=== PATIENT | female | born 1950 | race Caucasian/White ===

== ENCOUNTER 2017-02-03 09:15 | Inpatient (IN) | payer MEDICARE, BC, OTHER ==
[~2017-02-03 09:15] MED LIST: Bisacodyl 5 MG Tab PO PRN; Cyclobenzaprine 10 MG Tab PO PRN; Lactated Ringers 1,000 ML IV SCH; Lidocaine 1%/Sod Bicarbonate in NS 8.4% 1 ML Syringe IV PRN; Magnesium Hydroxide 400 MG/5 ML Susp 30 ML Cup PO PRN; Morphine 2 MG/ML Syringe IVPUSH PRN; Naloxone 0.4 MG/ML SDV IVPUSH PRN; Sennosides 8.6 MG Tab PO PRN; Sodium Chloride 0.9% 10 ML Syringe FLUSH PRN; diphenhydrAMINE 50 MG/ML SDV IVPUSH PRN
[2017-02-03] MEDS ORDERED: Lidocaine 1% 4 ML ONE (11:22)
[2017-02-03] MEDS ORDERED: ePHEDrine 50 MG/ML SDV ONE (11:22)
[2017-02-03] MEDS ORDERED: Propofol 200 MG/20 ML SDV ONE ×2 (11:23→14:09)
[2017-02-03] MEDS ORDERED: fentaNYL 100 MCG/2 ML SDV ONE (11:23)
[2017-02-03] MEDS ORDERED: Morphine PF 10 MG/10 ML SDV ONE (11:23)
[2017-02-03] MEDS ORDERED: Midazolam 1 MG/ML 2 ML SDV ONE ×2 (11:23→13:00)
--- NOTE | 2017-02-03 11:52 | PCM.PREANE ---
Preanesthetic Assessment - Anesthesia/Transfusion/Family Hx Anesthesia History: Prior Anesthesia Without Reaction Type of Anesthesia Reaction: Excessive Nausea/Vomiting Family History of Anesthesia Reaction: No Transfusion History: Prior Transfusion Without Reaction - Review of Systems General: No Symptoms Pulmonary: No Symptoms, Other (feels stuffy today) Cardiovascular: No Symptoms Gastrointestinal: No Symptoms Neurological: No Symptoms Other: Reports: Easy Bruising, Sinus Problem - Physical Assessment NPO Status Date: 02/03/17 NPO Status Time: 04:00 O2 Sat by Pulse Oximetry: 95 Respiratory Rate: 20 Vital Signs: Last Vital Signs Temp 98.3 F 02/03/17 10:50 Pulse 97 02/03/17 10:50 Resp 20 02/03/17 10:50 BP 149/94 H 02/03/17 10:50 Pulse Ox 95 02/03/17 10:50 Height: 5 ft 1 in Weight: 102.104 kg ASA Class: 2 Mental Status: Alert & Oriented x3 Airway Class: Mallampati = 2 Dentition: Reports: Normal Dentition Thyro-Mental Finger Breadths: 3 Mouth Opening Finger Breadths: 3 ROM/Head Extension: Full Lungs: Clear to Auscultation, Normal Respiratory Effort Cardiovascular: Regular Rate, Regular Rhythm - Lab Values: Laboratory Last Values MRSA (PCR) Negative 01/21/17 10:42 - Imaging/EKG Impressions: 01/15/17 cxr possibly atelectasis or infiltrate right base - mild increase in heart size 01/15/17 EKG SR 65 - Allergies Allergies/Adverse Reactions: Allergies Allergy/AdvReac Type Severity Reaction Status Date / Time amlodipine [From [facility]] Allergy Itching Verified 02/03/17 11:34 amoxicillin Allergy Stomach Verified 02/03/17 11:34 Upset bee venom protein (honey bee) Allergy Edema Verified 02/03/17 11:34 erythromycin base Allergy Stomach Verified 02/03/17 11:34 Upset - Blood Blood Available: No - Acknowledgements Anesthesia Type Planned: Spinal Pt an Appropriate Candidate for the Planned Anesthesia: Yes Alternatives and Risks of Anesthesia Discussed w Pt/Guardian: Yes Pt/Guardian Understands and Agrees with Anesthesia Plan: Yes PreAnesthesia Questionnaire HEENT History: Reports: Impaired Vision, Other (See Below) Other HEENT History: wears glasses Cardiovascular History: Reports: Heart Murmur, High Cholesterol, Hypertension, Other (See Below) Other Cardiovascular History: mitral valve regurgitation Respiratory History: Reports: Sleep Apnea Gastrointestinal History: Reports: GERD Genitourinary History: Reports: Other (See Below) Other Genitourinary History: breast hypertrophy, UTI, frequency TILE [employer]TER History: Reports: None Musculoskeletal History: Reports: Osteoarthritis, Osteoporosis, Other (See Below ) Other Musculoskeletal History: degenerative joint disease, degenerative disc disease, bilateral shoulder pain, upper back pain Endocrine/Metabolic History: Reports: None, Obesity/BMI 30+ Hematologic History: Reports: None Immunologic History: Reports: None Oncologic (Cancer) History: Reports: None Dermatologic History: Reports: None - Past Surgical History GI Surgical History: Reports: Cholecystectomy, Colonoscopy, EGD Female Surgical History: Reports: Breast Biopsy Endocrine Surgical History: Reports: None Neurological Surgical History: Reports: None Musculoskeletal Surgical History: Reports: Other (See Below) Other Musculoskeletal Surgeries/Procedures:: right total knee, right foot fusion with hardware Oncologic Surgical History: Reports: None - SUBSTANCE USE Smoking Status *Q: Never Smoker Tobacco Use Within Last Twelve Months: No Second Hand Smoke Exposure: No Days Per Week of Alcohol Use: 0 (1-2 per month) Recreational Drug Use History: No - HOME MEDS Home Medications: Home Meds Aspirin/Acetaminophen/Caffeine [Migraine Relief Caplet] 2 tab PO Q6H PRN [History] Calcium Carbonate [Calcium] 1,200 mg PO DAILY 01/31/17 [History] Celecoxib 200 mg PO DAILY PRN 01/31/17 [History] Hydrochlorothiazide [Hydrochlorothiazide] 12.5 mg PO DAILY 01/31/17 [History] Multivitamin [Daily Olvier] 1 tab PO DAILY 01/31/17 [History] Naproxen Sodium [Aleve] 220 mg PO BID 01/31/17 [History] Omeprazole Magnesium [Prilosec Otc] 20 mg PO DAILY 01/31/17 [History] Simvastatin [Zocor] 20 mg PO BEDTIME 01/31/17 [History] traMADol HCl [Tramadol HCl] 50 mg PO QID PRN 01/31/17 [History] Cholecalciferol (Vitamin D3) [Vitamin D] 1 tab PO DAILY 02/03/17 [History] Vit C/Oliver Ac/Lut/Copper/ZnOx [Preservision Lutein Softgel] 1 cap PO BID [History] - CURRENT (IN HOUSE) MEDS Current Meds: Current Medications Aspirin (Ecotrin) 325 mg PO BID [facility]ON[facility] Bisacodyl (Dulcolax) 5 mg PO DAILY PRN PRN Reason: Constipation Morphine Sulfate 8 mg/Epinephrine HCl 0.3 mg/Cefuroxime Sodium 750 mg/Ketorolac Tromethamine 30 mg/Sodium Chloride 27.9 ml 0 mg .XX ONETIME ONE Stop: 02/03/17 12:01 Cyclobenzaprine HCl (Flexeril) 10 mg PO TID PRN PRN Reason: Spasms Diphenhydramine HCl (Benadryl) 25 mg IVPUSH Q4H PRN PRN Reason: Nausea Docusate Sodium (Colace) 100 mg PO BID [facility] Famotidine (Pepcid) 20 mg PO Q12H [facility] Lactated Ringer's (Ringers, Lactated) 1,000 mls @ 125 mls/hr IV ASDIRECTED [facility] Last Admin: 02/03/17 11:10 Dose: 125 mls/hr Cefazolin Sodium/Dextrose 2 gm (/ Premix) 50 mls @ 100 mls/hr IV Q8H [facility] Stop: 02/03/17 23:59 Ketorolac Tromethamine (Toradol) 15 mg IVPUSH Q8H PRN PRN Reason: Pain Lidocaine/Sodium Bicarbonate (Buffered Lidocaine 1% In Ns 8.4%) 0.25 ml IV ONETIME PRN PRN Reason: Prior to IV Start Stop: 02/03/17 23:00 Last Admin: 02/03/17 11:09 Dose: 0.25 ml Magnesium Hydroxide (Milk Of Magnesia) 30 ml PO BID PRN PRN Reason: Constipation Morphine Sulfate (Morphine) 2 mg IVPUSH Q2H PRN PRN Reason: Breakthrough Pain Naloxone HCl (Narcan) 0.1 mg IVPUSH Q5M PRN PRN Reason: Oversedation Ondansetron HCl (Zofran) 4 mg IVPUSH Q6H PRN PRN Reason: Nausea/Vomiting Oxycodone/Acetaminophen (Percocet 325-5 Mg) 1 - 2 tab PO Q4H PRN PRN Reason: Pain Senna (Senna) 8.6 mg PO BID PRN PRN Reason: Constipation Sodium Chloride (Saline Flush) 10 ml FLUSH ASDIRECTED PRN PRN Reason: Keep Vein Open Stop: 02/03/17 23:00 Discontinued Medications Cefazolin Sodium (Ancef) Confirm Administered Dose 2 gm .ROUTE .STK-MED ONE Stop: 02/03/17 11:23 Ephedrine Sulfate (Ephedrine Sulfate) Confirm Administered Dose 50 mg .ROUTE .STK-MED ONE Stop: 02/03/17 11:23 Fentanyl (Sublimaze) Confirm Administered Dose 100 mcg .ROUTE .STK-MED ONE Stop: 02/03/17 11:24 Lidocaine HCl (Xylocaine-Mpf 1%) Confirm Administered Dose 4 mls @ as directed .ROUTE .STK-MED ONE Stop: 02/03/17 11:23 Midazolam HCl (Versed 1 Mg/Ml) Confirm Administered Dose 2 mg .ROUTE .STK-MED ONE Stop: 02/03/17 11:24 Morphine Sulfate (Duramorph Pf) Confirm Administered Dose 10 mg .ROUTE .STK-MED ONE Stop: 02/03/17 11:24 Propofol (Diprivan 20 Ml) Confirm Administered Dose 400 mg .ROUTE .STK-MED ONE Stop: 02/03/17 11:24
[2017-02-03] MEDS ORDERED: Famotidine 20 MG/2 ML SDV ONE (12:14)
[2017-02-03] MEDS ORDERED: ceFAZolin 1 GM Vial ONE (12:19)
[2017-02-03] MEDS ORDERED: Scopolamine 1.5 MG Transdermal Patch TRDERM ONE (12:30)
[2017-02-03] MEDS: ceFAZolin 1 GM Vial ONE ×2 (13:44→14:17)
[2017-02-03] MEDS: Bupivacaine 0.25% 30 ML SDV ONE ×2 (13:44→14:32)
[2017-02-03] MEDS: Iodine/Sodium Iodide 2% Tincture 30 ML Bottle ONE ×2 (13:45→14:13)
[2017-02-03] MEDS: Morphine 8 MG, EPINEPHrine 0.3 MG, Cefuroxime 750 MG, Ketorolac 30 MG, Sodium Chloride ... ONE ×15 (13:45→18:21)
[2017-02-03] MEDS: Vancomycin 1 GM SDV ONE ×2 (13:46→14:27)
[2017-02-03] MEDS ORDERED: diphenhydrAMINE 50 MG/ML SDV IVPUSH PRN (13:53)
[2017-02-03] MEDS ORDERED: Ondansetron 4 MG/2 ML SDV IVPUSH PRN (13:53)
[2017-02-03] MEDS ORDERED: Haloperidol Lactate 5 MG/ML SDV IVPUSH ONE (14:15)
--- NOTE | 2017-02-03 15:12 | PCM.POSTAN ---
POST ANESTHESIA ASSESSMENT - MENTAL STATUS Mental Status: Alert, Oriented - VITAL SIGNS Pulse Rate: 93 SaO2: 93 Resp Rate: 12 Blood Pressure: 121/71 Temperature: 98.2 C - RESPIRATORY Respiratory Status: Respiratory Rate WNL, Airway Patent, O2 Saturation Stable, Supplemental Oxygen - CARDIOVASCULAR CV Status: Pulse Rate WNL, Blood Pressure Stable - GASTROINTESTINAL GI Status: No Symptoms - PAIN Pain Score: 0 - POST OP HYDRATION Hydration Status: Adequate & Stable
--- NOTE | 2017-02-03 19:50 | PCM.CONSN ---
- General Info Date of Service: 02/03/17 Subjective Update: 66 year old female with left knee OA presents post op. She is S/P left total knee arthroplasty. The hospitalist service has been consulted to assist with medical management. Functional Status: Reports: Pain Controlled, Tolerating Diet, Ambulating - Review of Systems General: Reports: No Symptoms HEENT: Reports: No Symptoms Pulmonary: Reports: No Symptoms Cardiovascular: Reports: No Symptoms Gastrointestinal: Reports: No Symptoms Genitourinary: Reports: No Symptoms Musculoskeletal: Reports: No Symptoms Skin: Reports: No Symptoms Neurological: Reports: No Symptoms Psychiatric: Reports: No Symptoms - Patient Data Vitals - Most Recent: Last Vital Signs Temp 36.6 C 02/03/17 18:00 Pulse 88 02/03/17 19:05 Resp 16 02/03/17 19:05 BP 120/75 02/03/17 19:05 Pulse Ox 92 L 02/03/17 19:05 Weight - Most Recent: 102.104 kg I&O - Last 24 Hours: Intake & Output 02/03/17 02/03/17 02/03/17 06:59 14:59 22:59 Intake Total 340 Output Total 500 Balance -160 Med Orders - Current: Current Medications Aspirin (Ecotrin) 325 mg PO BID [facility]ONTE Bisacodyl (Dulcolax) 5 mg PO DAILY PRN PRN Reason: Constipation Calcium Carbonate/Glycine (Calcium Carbonate) 1,200 mg PO DAILY [facility] Cholecalciferol (Vitamin D3) 5,000 units PO DAILY [facility] Cyclobenzaprine HCl (Flexeril) 10 mg PO TID PRN PRN Reason: Spasms Docusate Sodium (Colace) 100 mg PO BID [facility] Hydrochlorothiazide (Hydrochlorothiazide) 12.5 mg PO DAILY [facility] Cefazolin Sodium/Dextrose 2 gm (/ Premix) 50 mls @ 100 mls/hr IV Q8H [facility] Stop: 02/04/17 13:29 Ketorolac Tromethamine (Toradol) 15 mg IVPUSH Q8H PRN PRN Reason: Pain Magnesium Hydroxide (Milk Of Magnesia) 30 ml PO BID PRN PRN Reason: Constipation Miscellaneous Information (Remove Patch) 0 ea TRDERM ONETIME ONE Stop: 02/06/17 12:31 Morphine Sulfate (Morphine) 2 mg IVPUSH Q2H PRN PRN Reason: Breakthrough Pain Naloxone HCl (Narcan) 0.1 mg IVPUSH Q5M PRN PRN Reason: Oversedation Ondansetron HCl (Zofran) 4 mg IVPUSH Q6H PRN PRN Reason: Nausea/Vomiting Oxycodone/Acetaminophen (Percocet 325-5 Mg) 1 - 2 tab PO Q4H PRN PRN Reason: Pain Pantoprazole Sodium (Protonix) 40 mg PO DAILY [facility] Senna (Senna) 8.6 mg PO BID PRN PRN Reason: Constipation Simvastatin (Zocor) 20 mg PO BEDTIME [facility] Sodium Chloride (Saline Flush) 10 ml FLUSH ASDIRECTED PRN PRN Reason: Keep Vein Open Stop: 02/03/17 23:00 Discontinued Medications Bupivacaine HCl (Marcaine 0.25%) Confirm Administered Dose 30 ml .ROUTE .STK- MED ONE Stop: 02/03/17 12:20 Last Admin: 02/03/17 14:32 Dose: 30 ml Cefazolin Sodium (Ancef) Confirm Administered Dose 2 gm .ROUTE .STK-MED ONE Stop: 02/03/17 11:23 Last Admin: 02/03/17 14:17 Dose: 2 gm Cefazolin Sodium (Ancef) Confirm Administered Dose 2 gm .ROUTE .STK-MED ONE Stop: 02/03/17 12:20 Morphine Sulfate 8 mg/Epinephrine HCl 0.3 mg/Cefuroxime Sodium 750 mg/Ketorolac Tromethamine 30 mg/Sodium Chloride 27.9 ml 0 mg .XX ONETIME ONE Stop: 02/03/17 12:01 Last Admin: 02/03/17 18:21 Dose: Not Given Diphenhydramine HCl (Benadryl) 25 mg IVPUSH Q4H PRN PRN Reason: Nausea Diphenhydramine HCl (Benadryl) 25 mg IVPUSH Q6H PRN PRN Reason: Pruritis Stop: 02/03/17 18:00 Ephedrine Sulfate (Ephedrine Sulfate) Confirm Administered Dose 50 mg .ROUTE .STK-MED ONE Stop: 02/03/17 11:23 Famotidine (Pepcid) 20 mg PO Q12H [facility] Famotidine (Pepcid) Confirm Administered Dose 20 mg .ROUTE .STK-MED ONE Stop: 02/03/17 12:15 Fentanyl (Sublimaze) Confirm Administered Dose 100 mcg .ROUTE .STK-MED ONE Stop: 02/03/17 11:24 Haloperidol Lactate (Haldol) 1 mg IVPUSH ONETIME ONE Stop: 02/03/17 14:16 Last Admin: 02/03/17 18:56 Dose: Not Given Lactated Ringer's (Ringers, Lactated) 1,000 mls @ 125 mls/hr IV ASDIRECTED [facility] Last Admin: 02/03/17 11:10 Dose: 125 mls/hr Lidocaine HCl (Xylocaine-Mpf 1%) Confirm Administered Dose 4 mls @ as directed .ROUTE .STK-MED ONE Stop: 02/03/17 11:23 Iodine (Iodine 2% Mild Tincture) Confirm Administered Dose 30 ml .ROUTE .STK- MED ONE Stop: 02/03/17 12:20 Last Admin: 02/03/17 14:13 Dose: 18 ml Lidocaine/Sodium Bicarbonate (Buffered Lidocaine 1% In Ns 8.4%) 0.25 ml IV ONETIME PRN PRN Reason: Prior to IV Start Stop: 02/03/17 23:00 Last Admin: 02/03/17 11:09 Dose: 0.25 ml Midazolam HCl (Versed 1 Mg/Ml) Confirm Administered Dose 2 mg .ROUTE .STK-MED ONE Stop: 02/03/17 11:24 Midazolam HCl (Versed 1 Mg/Ml) Confirm Administered Dose 2 mg .ROUTE .STK-MED ONE Stop: 02/03/17 13:01 Morphine Sulfate (Duramorph Pf) Confirm Administered Dose 10 mg .ROUTE .STK-MED ONE Stop: 02/03/17 11:24 Ondansetron HCl (Zofran) 4 mg IVPUSH ONETIME PRN PRN Reason: Nausea/Vomiting Stop: 02/03/17 18:00 Propofol (Diprivan 20 Ml) Confirm Administered Dose 400 mg .ROUTE .STK-MED ONE Stop: 02/03/17 11:24 Propofol (Diprivan 20 Ml) Confirm Administered Dose 400 mg .ROUTE .STK-MED ONE Stop: 02/03/17 14:10 Scopolamine (Transderm-Scop) 1.5 mg TRDERM ONETIME ONE Stop: 02/03/17 12:31 Last Admin: 02/03/17 12:30 Dose: 1.5 mg Tranexamic Acid (Cyklokapron) Confirm Administered Dose 1,000 mg .ROUTE .STK- MED ONE Stop: 02/03/17 12:20 Last Admin: 02/03/17 14:31 Dose: 1,000 mg Vancomycin HCl (Vancomycin) Confirm Administered Dose 1 gm .ROUTE .STK-MED ONE Stop: 02/03/17 12:20 Last Admin: 02/03/17 14:27 Dose: 1 gm - Exam Quality Assessment: Supplemental Oxygen, Urine Catheter, DVT Prophylaxis General: Alert, Oriented, Cooperative, No Acute Distress HEENT: Pupils Equal, Pupils Reactive, EOMI Neck: Supple, Trachea Midline, No JVD Lungs: Normal Respiratory Effort Cardiovascular: Regular Rate, Regular Rhythm, Murmurs (SM at apex) GI/Abdominal Exam: Normal Bowel Sounds, Soft, Non-Tender, No Distention (Female) Exam: Deferred Back Exam: Normal Inspection Extremities: Normal Inspection, Normal Capillary Refill Skin: Warm Wound/Incisions: Dressing Dry and Intact Neurological: No New Focal Deficit Psy/Mental Status: Alert, Normal Affect, Normal Mood Consult PN Assessment/Plan POD#: 0 Procedures: Procedures BONE IMAGING 3 PHASE (12/05/16) MICROBE SUSCEPTIBLE HENRY (10/26/16) URINE BACTERIA CULTURE (10/26/16) URINE CULTURE/COLONY COUNT (10/26/16) X-RAY EXAM OF WRIST (10/27/13) Problem List Initiated/Reviewed/Updated: Yes Plan: Impression: Left knee arthroplasty, POD 0 Chronic Depression OA HLD MR Sleep apnea Plan: Home meds Daily labs Pain/DVT medical mgt per primary service CM/PT/OT
[2017-02-03] MEDS: ceFAZolin 2 GM in Premix Bag 1 BAG IV SCH (20:05)
[2017-02-03] MEDS: Simvastatin 20 MG Tab PO SCH (20:05)
[2017-02-03] MEDS: Docusate Sodium 100 MG Cap PO SCH (20:05)
[2017-02-03] MEDS ORDERED: Famotidine 20 MG Tab PO SCH (21:00)
[2017-02-03] MEDS: Acetaminophen/oxyCODONE 325-5 MG Tab PO PRN (21:38)
[2017-02-03] MEDS ORDERED: diphenhydrAMINE 25 MG Cap PO ONE (22:30)
[2017-02-04] MEDS: Acetaminophen/oxyCODONE 325-5 MG Tab PO PRN ×5 (03:59→22:32)
[2017-02-04] MEDS: ceFAZolin 2 GM in Premix Bag 1 BAG IV SCH ×2 (04:00→12:08)
--- NOTE | 2017-02-04 08:06 | CR ---
Left knee: Two views of the left knee were obtained. Comparison: No prior left knee study. Knee prosthesis is seen. Components are aligned. Soft tissue air is noted from the surgical procedure. Bony structures are unremarkable. Impression: 1. Satisfactory postop radiographic appearance of recently placed left knee prosthesis. Diagnostic code #2
[2017-02-04] MEDS: Cholecalciferol (Vitamin D3) 1,000 Unit Tab PO SCH (08:21)
[2017-02-04] MEDS: Pantoprazole 40 MG Tab.CR PO SCH (08:22)
[2017-02-04] MEDS: Aspirin 325 MG Tab.EC PO SCH ×2 (08:22→21:58)
[2017-02-04] MEDS: Hydrochlorothiazide 12.5 MG Cap PO SCH (08:22)
[2017-02-04] MEDS: Calcium Carbonate 600 MG Tab PO SCH (08:22)
[2017-02-04] MEDS: Docusate Sodium 100 MG Cap PO SCH ×2 (08:23→21:58)
[2017-02-04] MEDS: Ketorolac 15 MG/ML SDV IVPUSH PRN ×2 (08:24→21:57)
--- NOTE | 2017-02-04 09:44 | PCM.CONSN ---
- General Info Date of Service: 02/04/17 Admission Dx/Problem (Free Text): S/P left knee arthroplasty Subjective Update: 66 year old female with left knee OA presents post op. She is day 1 S/P left total knee arthroplasty. The hospitalist service has been consulted to assist with medical management. Functional Status: Reports: Pain Controlled, Tolerating Diet, Ambulating, Incentive Spirometry Pain Score: 3 - Review of Systems General: Reports: No Symptoms HEENT: Reports: No Symptoms Pulmonary: Reports: Cough (since surgery ). Denies: Shortness of Breath, Pleuritic Chest Pain, Sputum, Wheezing Cardiovascular: Reports: No Symptoms Gastrointestinal: Reports: No Symptoms Genitourinary: Reports: No Symptoms Musculoskeletal: Reports: Leg Pain (left leg from knee to hip) Skin: Reports: No Symptoms Neurological: Reports: No Symptoms Psychiatric: Reports: No Symptoms - Patient Data Vitals - Most Recent: Last Vital Signs Temp 98.6 F 02/04/17 08:14 Pulse 71 02/04/17 08:14 Resp 17 02/04/17 09:00 BP 102/67 02/04/17 08:14 Pulse Ox 97 02/04/17 07:50 Weight - Most Recent: 224 lb I&O - Last 24 Hours: Intake & Output 02/03/17 02/04/17 02/04/17 22:59 06:59 14:59 Intake Total 1350 1300 Output Total 600 575 Balance 750 725 Lab Results Last 24 Hours: Laboratory Results - last 24 hr 02/04/17 02/04/17 Range/Units 06:01 06:01 WBC 12.33 H (3.98-10.04) K/mm3 RBC 3.43 L (3.98-5.22) M/mm3 Hgb 10.3 L (11.2-15.7) gm/L Hct 32.1 L (34.1-44.9) % MCV 93.6 (79.4-94.8) fl MCH 30.0 (25.6-32.2) pg MCHC 32.1 L (32.2-35.5) g/dl RDW Std Deviation 45.5 (36.4-46.3) fL Plt Count 211 (182-369) K/mm3 MPV 12.0 (9.4-12.3) fl Sodium 139 (136-145) mEq/L Potassium 4.1 (3.5-5.1) mEq/L Chloride 103 (98-107) mEq/L Carbon Dioxide 29 (21-32) mEq/L Anion Gap 11.1 (5-15) BUN 13 (7-18) mg/dL Creatinine 0.8 (0.55-1.02) mg/dL Est Cr Clr Drug Dosing 50.79 mL/min Estimated GFR (MDRD) > 60 (>60) mL/min BUN/Creatinine Ratio 16.3 (14-18) Glucose 118 H (80-115) mg/dL Calcium 8.0 L (8.5-10.1) mg/dL Total Bilirubin 0.9 (0.2-1.0) mg/dL AST 21 (15-37) U/L ALT 24 (14-59) U/L Alkaline Phosphatase 53 (46-116) U/L Total Protein 5.9 L (6.4-8.2) g/dl Albumin 2.8 L (3.4-5.0) g/dl Globulin 3.1 gm/dL Albumin/Globulin Ratio 0.9 L (1-2) Med Orders - Current: Current Medications Aspirin (Ecotrin) 325 mg PO BID [facility] Last Admin: 02/04/17 08:22 Dose: 325 mg Bisacodyl (Dulcolax) 5 mg PO DAILY PRN PRN Reason: Constipation Calcium Carbonate/Glycine (Calcium Carbonate) 1,200 mg PO DAILY [facility] Last Admin: 02/04/17 08:22 Dose: 600 mg Cholecalciferol (Vitamin D3) 5,000 units PO DAILY [facility] Last Admin: 02/04/17 08:21 Dose: 5,000 units Cyclobenzaprine HCl (Flexeril) 10 mg PO TID PRN PRN Reason: Spasms Docusate Sodium (Colace) 100 mg PO BID [facility] Last Admin: 02/04/17 08:23 Dose: 100 mg Hydrochlorothiazide (Hydrochlorothiazide) 12.5 mg PO DAILY [facility] Last Admin: 02/04/17 08:22 Dose: 12.5 mg Cefazolin Sodium/Dextrose 2 gm (/ Premix) 50 mls @ 100 mls/hr IV Q8H [facility] Stop: 02/04/17 13:29 Last Admin: 02/04/17 04:00 Dose: 100 mls/hr Ketorolac Tromethamine (Toradol) 15 mg IVPUSH Q8H PRN PRN Reason: Pain Last Admin: 02/04/17 08:24 Dose: 15 mg Magnesium Hydroxide (Milk Of Magnesia) 30 ml PO BID PRN PRN Reason: Constipation Miscellaneous Information (Remove Patch) 0 ea TRDERM ONETIME ONE Stop: 02/06/17 12:31 Morphine Sulfate (Morphine) 2 mg IVPUSH Q2H PRN PRN Reason: Breakthrough Pain Naloxone HCl (Narcan) 0.1 mg IVPUSH Q5M PRN PRN Reason: Oversedation Ondansetron HCl (Zofran) 4 mg IVPUSH Q6H PRN PRN Reason: Nausea/Vomiting Oxycodone/Acetaminophen (Percocet 325-5 Mg) 1 - 2 tab PO Q4H PRN PRN Reason: Pain Last Admin: 02/04/17 08:23 Dose: 2 tab Pantoprazole Sodium (Protonix) 40 mg PO DAILY [facility] Last Admin: 02/04/17 08:22 Dose: 40 mg Senna (Senna) 8.6 mg PO BID PRN PRN Reason: Constipation Simvastatin (Zocor) 20 mg PO BEDTIME [facility] Last Admin: 02/03/17 20:05 Dose: 20 mg Discontinued Medications Bupivacaine HCl (Marcaine 0.25%) Confirm Administered Dose 30 ml .ROUTE .STK- MED ONE Stop: 02/03/17 12:20 Last Admin: 02/03/17 14:32 Dose: 30 ml Cefazolin Sodium (Ancef) Confirm Administered Dose 2 gm .ROUTE .STK-MED ONE Stop: 02/03/17 11:23 Last Admin: 02/03/17 14:17 Dose: 2 gm Cefazolin Sodium (Ancef) Confirm Administered Dose 2 gm .ROUTE .STK-MED ONE Stop: 02/03/17 12:20 Morphine Sulfate 8 mg/Epinephrine HCl 0.3 mg/Cefuroxime Sodium 750 mg/Ketorolac Tromethamine 30 mg/Sodium Chloride 27.9 ml 0 mg .XX ONETIME ONE Stop: 02/03/17 12:01 Last Admin: 02/03/17 18:21 Dose: Not Given Diphenhydramine HCl (Benadryl) 25 mg IVPUSH Q4H PRN PRN Reason: Nausea Diphenhydramine HCl (Benadryl) 25 mg IVPUSH Q6H PRN PRN Reason: Pruritis Stop: 02/03/17 18:00 Diphenhydramine HCl (Benadryl) 25 mg PO ONETIME ONE Stop: 02/03/17 22:31 Last Admin: 02/03/17 22:39 Dose: 25 mg Ephedrine Sulfate (Ephedrine Sulfate) Confirm Administered Dose 50 mg .ROUTE .STK-MED ONE Stop: 02/03/17 11:23 Famotidine (Pepcid) 20 mg PO Q12H [facility] Famotidine (Pepcid) Confirm Administered Dose 20 mg .ROUTE .STK-MED ONE Stop: 02/03/17 12:15 Fentanyl (Sublimaze) Confirm Administered Dose 100 mcg .ROUTE .STK-MED ONE Stop: 02/03/17 11:24 Haloperidol Lactate (Haldol) 1 mg IVPUSH ONETIME ONE Stop: 02/03/17 14:16 Last Admin: 02/03/17 18:56 Dose: Not Given Lactated Ringer's (Ringers, Lactated) 1,000 mls @ 125 mls/hr IV ASDIRECTED [facility] Last Admin: 02/03/17 11:10 Dose: 125 mls/hr Lidocaine HCl (Xylocaine-Mpf 1%) Confirm Administered Dose 4 mls @ as directed .ROUTE .STK-MED ONE Stop: 02/03/17 11:23 Iodine (Iodine 2% Mild Tincture) Confirm Administered Dose 30 ml .ROUTE .STK- MED ONE Stop: 02/03/17 12:20 Last Admin: 02/03/17 14:13 Dose: 18 ml Lidocaine/Sodium Bicarbonate (Buffered Lidocaine 1% In Ns 8.4%) 0.25 ml IV ONETIME PRN PRN Reason: Prior to IV Start Stop: 02/03/17 23:00 Last Admin: 02/03/17 11:09 Dose: 0.25 ml Midazolam HCl (Versed 1 Mg/Ml) Confirm Administered Dose 2 mg .ROUTE .STK-MED ONE Stop: 02/03/17 11:24 Midazolam HCl (Versed 1 Mg/Ml) Confirm Administered Dose 2 mg .ROUTE .STK-MED ONE Stop: 02/03/17 13:01 Morphine Sulfate (Duramorph Pf) Confirm Administered Dose 10 mg .ROUTE .STK-MED ONE Stop: 02/03/17 11:24 Ondansetron HCl (Zofran) 4 mg IVPUSH ONETIME PRN PRN Reason: Nausea/Vomiting Stop: 02/03/17 18:00 Propofol (Diprivan 20 Ml) Confirm Administered Dose 400 mg .ROUTE .STK-MED ONE Stop: 02/03/17 11:24 Propofol (Diprivan 20 Ml) Confirm Administered Dose 400 mg .ROUTE .STK-MED ONE Stop: 02/03/17 14:10 Scopolamine (Transderm-Scop) 1.5 mg TRDERM ONETIME ONE Stop: 02/03/17 12:31 Last Admin: 02/03/17 12:30 Dose: 1.5 mg Sodium Chloride (Saline Flush) 10 ml FLUSH ASDIRECTED PRN PRN Reason: Keep Vein Open Stop: 02/03/17 23:00 Tranexamic Acid (Cyklokapron) Confirm Administered Dose 1,000 mg .ROUTE .STK- MED ONE Stop: 02/03/17 12:20 Last Admin: 02/03/17 14:31 Dose: 1,000 mg Vancomycin HCl (Vancomycin) Confirm Administered Dose 1 gm .ROUTE .STK-MED ONE Stop: 02/03/17 12:20 Last Admin: 02/03/17 14:27 Dose: 1 gm - Exam Quality Assessment: Supplemental Oxygen, DVT Prophylaxis General: Alert, Oriented, Cooperative HEENT: Pupils Equal, Pupils Reactive, Mucous Membr. Moist/[place] Neck: Supple, Trachea Midline, No JVD Lungs: Clear to Auscultation, Normal Respiratory Effort, Other Cardiovascular: Regular Rate, Regular Rhythm, Murmurs (systolic at apex ) GI/Abdominal Exam: Normal Bowel Sounds, Soft, Non-Tender, No Distention, No Mass (Female) Exam: Deferred Back Exam: Normal Inspection Extremities: Other (left leg is wrapped from surgery. Right leg is unremarkable ) Peripheral Pulses: 2+: Radial (L), Radial (R), Posterior Tibial (R), Dorsalis Pedis (L), Dorsalis Pedis (R) Skin: Warm, Dry, Intact Wound/Incisions: Dressing Dry and Intact, No Drainage Neurological: No New Focal Deficit Psy/Mental Status: Alert, Normal Affect, Normal Mood Consult PN Assessment/Plan POD#: 1 Procedures: Procedures BONE IMAGING 3 PHASE (12/05/16) MICROBE SUSCEPTIBLE HENRY (10/26/16) URINE BACTERIA CULTURE (10/26/16) URINE CULTURE/COLONY COUNT (10/26/16) X-RAY EXAM OF WRIST (10/27/13) (1) Status post left knee replacement SNOMED Code(s): 5878127897073, 0034312942812 Code(s): Z96.652 - PRESENCE OF LEFT ARTIFICIAL KNEE JOINT Priority: High Current Visit: Yes (2) HLD (hyperlipidemia) SNOMED Code(s): 65208375 Code(s): E78.5 - HYPERLIPIDEMIA, UNSPECIFIED Priority: Low Current Visit : No Qualifiers: Hyperlipidemia type: unspecified Qualified Code(s): E78.5 - Hyperlipidemia , unspecified (3) Mitral regurgitation SNOMED Code(s): 40935759 Code(s): I34.0 - NONRHEUMATIC MITRAL (VALVE) INSUFFICIENCY Priority: Medium Current Visit: Yes Qualifiers: Cardiac valve disease etiology: etiology unspecified Qualified Code(s): I34.0 - Nonrheumatic mitral (valve) insufficiency (4) LORRI (obstructive sleep apnea) SNOMED Code(s): 08664723 Code(s): G47.33 - OBSTRUCTIVE SLEEP APNEA (ADULT) (PEDIATRIC) Priority: Low Current Visit: Yes (5) Osteoarthritis SNOMED Code(s): 875631780 Code(s): M19.90 - UNSPECIFIED OSTEOARTHRITIS, UNSPECIFIED SITE Priority: Low Current Visit: Yes Qualifiers: Osteoarthritis location: unspecified site Osteoarthritis type: unspecified Qualified Code(s): M19.90 - Unspecified osteoarthritis, unspecified site (6) HTN (hypertension) SNOMED Code(s): 74487155 Code(s): I10 - ESSENTIAL (PRIMARY) HYPERTENSION Priority: Medium Current Visit: Yes Qualifiers: Hypertension type: unspecified Qualified Code(s): I10 - Essential (primary ) hypertension (7) GERD (gastroesophageal reflux disease) SNOMED Code(s): 567517740 Code(s): K21.9 - GASTRO-ESOPHAGEAL REFLUX DISEASE WITHOUT ESOPHAGITIS Priority: Low Current Visit: No Qualifiers: Esophagitis presence: esophagitis presence not specified Qualified Code(s) : K21.9 - Gastro-esophageal reflux disease without esophagitis (8) Depression SNOMED Code(s): 75852642 Code(s): F32.9 - MAJOR DEPRESSIVE DISORDER, SINGLE EPISODE, UNSPECIFIED Priority: Low Current Visit: Yes Qualifiers: Depression Type: unspecified Qualified Code(s): F32.9 - Major depressive disorder, single episode, unspecified Problem List Initiated/Reviewed/Updated: Yes My Orders Last 24 Hours: My Active Orders 02/04/17 09:09 Acapella [RT Chest Physiotherapy] [RC] ASDIRECTED Plan: Impression: Left knee arthroplasty, POD 1 Chronic: Depression OA HLD MR Sleep apnea Plan: Home meds Daily labs Pain/DVT medical mgt per primary service CM/PT/OT
--- NOTE | 2017-02-04 10:20 | PCM48HPAN ---
Post Anesthesia Note - EVALUATION WITHIN 48HRS OF ANESTHETIC Vital Signs in Normal Range: Yes Patient Participated in Evaluation: Yes Respiratory Function Stable: Yes Airway Patent: Yes Cardiovascular Function Stable: Yes Hydration Status Stable: Yes Pain Control Satisfactory: No Nausea and Vomiting Control Satisfactory: Yes Mental Status Recovered: Yes - COMMENTS/OBSERVATIONS Free Text/Narrative:: Patient denied any residual numbness or tingling to lower extremities, headache , or back pain. Patient also said she didn't have any nausea but did complain of pain to her left knee. Pt is up ambulating and resting in her chair.
[2017-02-04] MEDS: Ondansetron 4 MG/2 ML SDV IVPUSH PRN (12:08)
--- NOTE | 2017-02-04 14:31 | PCM.SN ---
- Free Text/Narrative Note: Patient was cleared for discharge from an Ortho standpoint. Her oxygen saturations have fluctuated quite a bit today while in our care. I was in to see her this AM after nursing attempted to wean pt. off O2. Her saturations dropped to middle 80's with good pleth on continuous pulse ox. PT/OT reports concerns with patient as she was de-saturating for them while they were evaluating her. There were some concerns over her saturations by nursing as well , although her documented saturations appear to reflect baseline. I personally went in to evaluate patient. O2 was stopped, as she was showing 97% saturation on the monitor with good pleth at 1L via NC. Laying in bed, not moving or talking, she dropped to low 90's, fluctuating between 90-93. While talking she de-saturated to 85-87 range. She has a diagnosis of LORRI, but no other respiratory conditions. She is obese. She has never been a smoker. Her saturations eventually returned to low 90's sitting around 92%, however they do fluctuate occasionally. I discussed these findings with the patient. She voices concern, as she reportedly was hospitalized for an extended period of time following a prior surgery. We discussed exploring home oxygen therapy if needed and she would rather not be discharged on home O2, if at all possible. Case management reports pt. does not have a diagnosis that would authorize home oxygen equipment. We will explore this thoroughly if it comes to this. RT will attempt to qualify her for home O2 tonight so we can be prepared and determine need. At this point I do not think Mrs. Rojas is medically ready to be discharged. We will evaluate her thoroughly tomorrow utilizing nursing, along with PT/OT, and plan on discharge at that point.
--- NOTE | 2017-02-04 16:29 | PCM.SURGPN ---
- General Info Date of Service: 02/04/17 POD#: 1 Functional Status: Reports: Tolerating Diet, Ambulating, Urinating, Other (The pt has had low O2 sats intermittently today. She has had nausea.) - Review of Systems Musculoskeletal: Reports: Other (The pt is progressing with therapies.) - Patient Data Vitals - Most Recent: Last Vital Signs Temp 98.4 F 02/04/17 12:09 Pulse 72 02/04/17 12:09 Resp 16 02/04/17 15:00 BP 114/66 02/04/17 12:09 Pulse Ox 97 02/04/17 15:00 Weight - Most Recent: 224 lb I&O - Last 24 Hours: Intake & Output 02/04/17 02/04/17 02/04/17 06:59 14:59 22:59 Intake Total 1300 120 430 Output Total 575 Balance 725 120 430 Lab Results Last 24 Hrs: Laboratory Results - last 24 hr 02/04/17 02/04/17 Range/Units 06:01 06:01 WBC 12.33 H (3.98-10.04) K/mm3 RBC 3.43 L (3.98-5.22) M/mm3 Hgb 10.3 L (11.2-15.7) gm/L Hct 32.1 L (34.1-44.9) % MCV 93.6 (79.4-94.8) fl MCH 30.0 (25.6-32.2) pg MCHC 32.1 L (32.2-35.5) g/dl RDW Std Deviation 45.5 (36.4-46.3) fL Plt Count 211 (182-369) K/mm3 MPV 12.0 (9.4-12.3) fl Sodium 139 (136-145) mEq/L Potassium 4.1 (3.5-5.1) mEq/L Chloride 103 (98-107) mEq/L Carbon Dioxide 29 (21-32) mEq/L Anion Gap 11.1 (5-15) BUN 13 (7-18) mg/dL Creatinine 0.8 (0.55-1.02) mg/dL Est Cr Clr Drug Dosing 50.79 mL/min Estimated GFR (MDRD) > 60 (>60) mL/min BUN/Creatinine Ratio 16.3 (14-18) Glucose 118 H (80-115) mg/dL Calcium 8.0 L (8.5-10.1) mg/dL Total Bilirubin 0.9 (0.2-1.0) mg/dL AST 21 (15-37) U/L ALT 24 (14-59) U/L Alkaline Phosphatase 53 (46-116) U/L Total Protein 5.9 L (6.4-8.2) g/dl Albumin 2.8 L (3.4-5.0) g/dl Globulin 3.1 gm/dL Albumin/Globulin Ratio 0.9 L (1-2) Med Orders - Current: Current Medications Aspirin (Ecotrin) 325 mg PO BID [facility] Last Admin: 02/04/17 08:22 Dose: 325 mg Bisacodyl (Dulcolax) 5 mg PO DAILY PRN PRN Reason: Constipation Calcium Carbonate/Glycine (Calcium Carbonate) 1,200 mg PO DAILY [facility] Last Admin: 02/04/17 08:22 Dose: 600 mg Cholecalciferol (Vitamin D3) 5,000 units PO DAILY [facility] Last Admin: 02/04/17 08:21 Dose: 5,000 units Cyclobenzaprine HCl (Flexeril) 10 mg PO TID PRN PRN Reason: Spasms Docusate Sodium (Colace) 100 mg PO BID [facility] Last Admin: 02/04/17 08:23 Dose: 100 mg Hydrochlorothiazide (Hydrochlorothiazide) 12.5 mg PO DAILY [facility] Last Admin: 02/04/17 08:22 Dose: 12.5 mg Ketorolac Tromethamine (Toradol) 15 mg IVPUSH Q8H PRN PRN Reason: Pain Last Admin: 02/04/17 08:24 Dose: 15 mg Magnesium Hydroxide (Milk Of Magnesia) 30 ml PO BID PRN PRN Reason: Constipation Miscellaneous Information (Remove Patch) 0 ea TRDERM ONETIME ONE Stop: 02/06/17 12:31 Morphine Sulfate (Morphine) 2 mg IVPUSH Q2H PRN PRN Reason: Breakthrough Pain Last Admin: 02/04/17 16:16 Dose: 2 mg Naloxone HCl (Narcan) 0.1 mg IVPUSH Q5M PRN PRN Reason: Oversedation Ondansetron HCl (Zofran) 4 mg IVPUSH Q6H PRN PRN Reason: Nausea/Vomiting Last Admin: 02/04/17 12:08 Dose: 4 mg Oxycodone/Acetaminophen (Percocet 325-5 Mg) 1 - 2 tab PO Q4H PRN PRN Reason: Pain Last Admin: 02/04/17 12:57 Dose: 2 tab Pantoprazole Sodium (Protonix) 40 mg PO DAILY [facility] Last Admin: 02/04/17 08:22 Dose: 40 mg Senna (Senna) 8.6 mg PO BID PRN PRN Reason: Constipation Simvastatin (Zocor) 20 mg PO BEDTIME [facility] Last Admin: 02/03/17 20:05 Dose: 20 mg Discontinued Medications Bupivacaine HCl (Marcaine 0.25%) Confirm Administered Dose 30 ml .ROUTE .STK- MED ONE Stop: 02/03/17 12:20 Last Admin: 02/03/17 14:32 Dose: 30 ml Cefazolin Sodium (Ancef) Confirm Administered Dose 2 gm .ROUTE .STK-MED ONE Stop: 02/03/17 11:23 Last Admin: 02/03/17 14:17 Dose: 2 gm Cefazolin Sodium (Ancef) Confirm Administered Dose 2 gm .ROUTE .STK-MED ONE Stop: 02/03/17 12:20 Morphine Sulfate 8 mg/Epinephrine HCl 0.3 mg/Cefuroxime Sodium 750 mg/Ketorolac Tromethamine 30 mg/Sodium Chloride 27.9 ml 0 mg .XX ONETIME ONE Stop: 02/03/17 12:01 Last Admin: 02/03/17 18:21 Dose: Not Given Diphenhydramine HCl (Benadryl) 25 mg IVPUSH Q4H PRN PRN Reason: Nausea Diphenhydramine HCl (Benadryl) 25 mg IVPUSH Q6H PRN PRN Reason: Pruritis Stop: 02/03/17 18:00 Diphenhydramine HCl (Benadryl) 25 mg PO ONETIME ONE Stop: 02/03/17 22:31 Last Admin: 02/03/17 22:39 Dose: 25 mg Ephedrine Sulfate (Ephedrine Sulfate) Confirm Administered Dose 50 mg .ROUTE .STK-MED ONE Stop: 02/03/17 11:23 Famotidine (Pepcid) 20 mg PO Q12H [facility] Famotidine (Pepcid) Confirm Administered Dose 20 mg .ROUTE .STK-MED ONE Stop: 02/03/17 12:15 Fentanyl (Sublimaze) Confirm Administered Dose 100 mcg .ROUTE .STK-MED ONE Stop: 02/03/17 11:24 Haloperidol Lactate (Haldol) 1 mg IVPUSH ONETIME ONE Stop: 02/03/17 14:16 Last Admin: 02/03/17 18:56 Dose: Not Given Lactated Ringer's (Ringers, Lactated) 1,000 mls @ 125 mls/hr IV ASDIRECTED [facility] Last Admin: 02/03/17 11:10 Dose: 125 mls/hr Cefazolin Sodium/Dextrose 2 gm (/ Premix) 50 mls @ 100 mls/hr IV Q8H [facility] Stop: 02/04/17 13:29 Last Admin: 02/04/17 12:08 Dose: 100 mls/hr Lidocaine HCl (Xylocaine-Mpf 1%) Confirm Administered Dose 4 mls @ as directed .ROUTE .STK-MED ONE Stop: 02/03/17 11:23 Iodine (Iodine 2% Mild Tincture) Confirm Administered Dose 30 ml .ROUTE .STK- MED ONE Stop: 02/03/17 12:20 Last Admin: 02/03/17 14:13 Dose: 18 ml Lidocaine/Sodium Bicarbonate (Buffered Lidocaine 1% In Ns 8.4%) 0.25 ml IV ONETIME PRN PRN Reason: Prior to IV Start Stop: 02/03/17 23:00 Last Admin: 02/03/17 11:09 Dose: 0.25 ml Midazolam HCl (Versed 1 Mg/Ml) Confirm Administered Dose 2 mg .ROUTE .STK-MED ONE Stop: 02/03/17 11:24 Midazolam HCl (Versed 1 Mg/Ml) Confirm Administered Dose 2 mg .ROUTE .STK-MED ONE Stop: 02/03/17 13:01 Morphine Sulfate (Duramorph Pf) Confirm Administered Dose 10 mg .ROUTE .STK-MED ONE Stop: 02/03/17 11:24 Ondansetron HCl (Zofran) 4 mg IVPUSH ONETIME PRN PRN Reason: Nausea/Vomiting Stop: 02/03/17 18:00 Propofol (Diprivan 20 Ml) Confirm Administered Dose 400 mg .ROUTE .STK-MED ONE Stop: 02/03/17 11:24 Propofol (Diprivan 20 Ml) Confirm Administered Dose 400 mg .ROUTE .STK-MED ONE Stop: 02/03/17 14:10 Scopolamine (Transderm-Scop) 1.5 mg TRDERM ONETIME ONE Stop: 02/03/17 12:31 Last Admin: 02/03/17 12:30 Dose: 1.5 mg Sodium Chloride (Saline Flush) 10 ml FLUSH ASDIRECTED PRN PRN Reason: Keep Vein Open Stop: 02/03/17 23:00 Tranexamic Acid (Cyklokapron) Confirm Administered Dose 1,000 mg .ROUTE .STK- MED ONE Stop: 02/03/17 12:20 Last Admin: 02/03/17 14:31 Dose: 1,000 mg Vancomycin HCl (Vancomycin) Confirm Administered Dose 1 gm .ROUTE .STK-MED ONE Stop: 02/03/17 12:20 Last Admin: 02/03/17 14:27 Dose: 1 gm - Exam Wound/Incisions: Dressing Dry and Intact General: Alert, Cooperative, No Acute Distress Lungs: Normal Respiratory Effort, Other (O2 per NC) Extremities: Other (NVS intact for BLE. [place]'s negative. ) - Problem List Review Problem List Initiated/Reviewed/Updated: Yes - My Orders Last 24 Hours: Active Orders 24 hr Category Date Time Status Acapella [RT Chest Physiotherapy] [RC] ASDIRECTED Care 02/04/17 09:09 Active Evaluate for Home Oxygen [RT Evaluate for Home Oxygen] Care 02/04/17 11:00 Active [RC] Click to Edit Regular Diet [DIET] Diet 02/03/17 Dinner Active Aspirin [Ecotrin] Med 02/04/17 09:00 Active 325 mg PO BID Calcium Carbonate Med 02/04/17 09:00 Active 1,200 mg PO DAILY Cholecalciferol (Vitamin D3) [Vitamin D3] Med 02/04/17 09:00 Active 5,000 units PO DAILY Docusate Sodium [Colace] Med 02/03/17 21:00 Active 100 mg PO BID Hydrochlorothiazide Med 02/04/17 09:00 Active 12.5 mg PO DAILY Pantoprazole [ProTONIX] Med 02/04/17 09:00 Active 40 mg PO DAILY Remove Patch Med 02/06/17 12:30 Once 0 ea TRDERM ONETIME ONE Simvastatin [Zocor] Med 02/03/17 21:00 Active 20 mg PO BEDTIME Medication Orders Aspirin (Ecotrin) 325 mg PO BID [facility] Last Admin: 02/04/17 08:22 Dose: 325 mg Bisacodyl (Dulcolax) 5 mg PO DAILY PRN PRN Reason: Constipation Calcium Carbonate/Glycine (Calcium Carbonate) 1,200 mg PO DAILY [facility] Last Admin: 02/04/17 08:22 Dose: 600 mg Cholecalciferol (Vitamin D3) 5,000 units PO DAILY [facility] Last Admin: 02/04/17 08:21 Dose: 5,000 units Cyclobenzaprine HCl (Flexeril) 10 mg PO TID PRN PRN Reason: Spasms Docusate Sodium (Colace) 100 mg PO BID [facility] Last Admin: 02/04/17 08:23 Dose: 100 mg Admin: 02/03/17 20:05 Dose: 100 mg Hydrochlorothiazide (Hydrochlorothiazide) 12.5 mg PO DAILY [facility] Last Admin: 02/04/17 08:22 Dose: 12.5 mg Ketorolac Tromethamine (Toradol) 15 mg IVPUSH Q8H PRN PRN Reason: Pain Last Admin: 02/04/17 08:24 Dose: 15 mg Magnesium Hydroxide (Milk Of Magnesia) 30 ml PO BID PRN PRN Reason: Constipation Miscellaneous Information (Remove Patch) 0 ea TRDERM ONETIME ONE Stop: 02/06/17 12:31 Morphine Sulfate (Morphine) 2 mg IVPUSH Q2H PRN PRN Reason: Breakthrough Pain Last Admin: 02/04/17 16:16 Dose: 2 mg Naloxone HCl (Narcan) 0.1 mg IVPUSH Q5M PRN PRN Reason: Oversedation Ondansetron HCl (Zofran) 4 mg IVPUSH Q6H PRN PRN Reason: Nausea/Vomiting Last Admin: 02/04/17 12:08 Dose: 4 mg Oxycodone/Acetaminophen (Percocet 325-5 Mg) 1 - 2 tab PO Q4H PRN PRN Reason: Pain Last Admin: 02/04/17 12:57 Dose: 2 tab Admin: 02/04/17 08:23 Dose: 2 tab Admin: 02/04/17 03:59 Dose: 2 tab Admin: 02/03/17 21:38 Dose: 2 tab Pantoprazole Sodium (Protonix) 40 mg PO DAILY [facility] Last Admin: 02/04/17 08:22 Dose: 40 mg Senna (Senna) 8.6 mg PO BID PRN PRN Reason: Constipation Simvastatin (Zocor) 20 mg PO BEDTIME [facility] Last Admin: 02/03/17 20:05 Dose: 20 mg - Assessment Assessment (Free Text/Narrative):: POD#1 - left TKA - Plan Plan (Free Text/Narrative):: 1. The pt will remain in Hospital overnight for continued monitoring of oxygen and to try to wean from O2 use. 2. The pt has not been cleared medically for discharge today. 3. Hgb 10.3 today. 4. ASA 325mg PO BID, frequent mobility, SCDs, TEDs for VTE prophylaxis. The pt's case was discussed with Dr. Coker today.
[2017-02-04] MEDS: Simvastatin 20 MG Tab PO SCH (21:58)
[2017-02-05] MEDS: Acetaminophen/oxyCODONE 325-5 MG Tab PO PRN (06:03)
[2017-02-05] MEDS: Pantoprazole 40 MG Tab.CR PO SCH ×2 (07:44→08:52)
[2017-02-05] MEDS: Aspirin 325 MG Tab.EC PO SCH (08:51)
[2017-02-05] MEDS: Hydrochlorothiazide 12.5 MG Cap PO SCH (08:51)
[2017-02-05] MEDS: Calcium Carbonate 600 MG Tab PO SCH (08:51)
[2017-02-05] MEDS: Docusate Sodium 100 MG Cap PO SCH (08:51)
[2017-02-05] MEDS: Cholecalciferol (Vitamin D3) 1,000 Unit Tab PO SCH (08:52)
[2017-02-05] MEDS: Ondansetron 4 MG/2 ML SDV IVPUSH PRN (09:38)
--- NOTE | 2017-02-05 10:58 | PCM.SURGPN ---
- General Info Date of Service: 02/05/17 POD#: 2 Functional Status: Reports: Pain Controlled, Tolerating Diet, Ambulating, Urinating, Other (The pt was able to wean from O2 use. She feels "much better" today and is prepared for discharge to home.) - Patient Data Vitals - Most Recent: Last Vital Signs Temp 97.7 F 02/05/17 08:29 Pulse 82 02/05/17 08:29 Resp 24 H 02/05/17 08:29 BP 150/52 H 02/05/17 08:29 Pulse Ox 93 L 02/05/17 08:32 Weight - Most Recent: 237 lb 1 oz I&O - Last 24 Hours: Intake & Output 02/04/17 02/05/17 02/05/17 22:59 06:59 14:59 Intake Total 1430 600 120 Output Total 250 700 Balance 1180 -100 120 Lab Results Last 24 Hrs: Laboratory Results - last 24 hr 02/05/17 02/05/17 Range/Units 07:10 07:10 WBC 9.47 (3.98-10.04) K/mm3 RBC 3.12 L (3.98-5.22) M/mm3 Hgb 9.6 L (11.2-15.7) gm/L Hct 28.6 L (34.1-44.9) % MCV 91.7 (79.4-94.8) fl MCH 30.8 (25.6-32.2) pg MCHC 33.6 (32.2-35.5) g/dl RDW Std Deviation 43.7 (36.4-46.3) fL Plt Count 155 L (182-369) K/mm3 MPV 11.7 (9.4-12.3) fl Neut % (Auto) 72.6 H (34.0-71.1) % Lymph % (Auto) 13.6 L (19.3-51.7) % [place] % (Auto) 11.2 (4.7-12.5) % Eos % (Auto) 2.3 (0.7-5.8) Baso % (Auto) 0.1 (0.1-1.2) % Neut # (Auto) 6.87 H (1.56-6.13) K/mm3 Lymph # (Auto) 1.29 (1.18-3.74) K/mm3 [place] # (Auto) 1.06 H (0.24-0.36) K/mm3 Eos # (Auto) 0.22 (0.04-0.36) K/mm3 Baso # (Auto) 0.01 (0.01-0.08) K/mm3 Sodium 131 L (136-145) mEq/L Potassium 3.4 L (3.5-5.1) mEq/L Chloride 97 L (98-107) mEq/L Carbon Dioxide 31 (21-32) mEq/L Anion Gap 6.4 (5-15) BUN 11 (7-18) mg/dL Creatinine 0.7 (0.55-1.02) mg/dL Est Cr Clr Drug Dosing 58.04 mL/min Estimated GFR (MDRD) > 60 (>60) mL/min BUN/Creatinine Ratio 15.7 (14-18) Glucose 106 (80-115) mg/dL Calcium 8.0 L (8.5-10.1) mg/dL Med Orders - Current: Current Medications Aspirin (Ecotrin) 325 mg PO BID [facility] Last Admin: 02/05/17 08:51 Dose: 325 mg Bisacodyl (Dulcolax) 5 mg PO DAILY PRN PRN Reason: Constipation Last Admin: 02/05/17 10:51 Dose: 5 mg Calcium Carbonate/Glycine (Calcium Carbonate) 1,200 mg PO DAILY [facility] Last Admin: 02/05/17 08:51 Dose: 1,200 mg Cholecalciferol (Vitamin D3) 5,000 units PO DAILY [facility] Last Admin: 02/05/17 08:52 Dose: 5,000 units Cyclobenzaprine HCl (Flexeril) 10 mg PO TID PRN PRN Reason: Spasms Docusate Sodium (Colace) 100 mg PO BID [facility] Last Admin: 02/05/17 08:51 Dose: 100 mg Hydrochlorothiazide (Hydrochlorothiazide) 12.5 mg PO DAILY [facility] Last Admin: 02/05/17 08:51 Dose: 12.5 mg Magnesium Hydroxide (Milk Of Magnesia) 30 ml PO BID PRN PRN Reason: Constipation Miscellaneous Information (Remove Patch) 0 ea TRDERM ONETIME ONE Stop: 02/06/17 12:31 Morphine Sulfate (Morphine) 2 mg IVPUSH Q2H PRN PRN Reason: Breakthrough Pain Last Admin: 02/04/17 16:16 Dose: 2 mg Naloxone HCl (Narcan) 0.1 mg IVPUSH Q5M PRN PRN Reason: Oversedation Ondansetron HCl (Zofran) 4 mg IVPUSH Q6H PRN PRN Reason: Nausea/Vomiting Last Admin: 02/05/17 09:38 Dose: 4 mg Oxycodone/Acetaminophen (Percocet 325-5 Mg) 1 - 2 tab PO Q4H PRN PRN Reason: Pain Last Admin: 02/05/17 06:03 Dose: 2 tab Pantoprazole Sodium (Protonix) 40 mg PO DAILY [facility] Last Admin: 02/05/17 08:52 Dose: Not Given Senna (Senna) 8.6 mg PO BID PRN PRN Reason: Constipation Last Admin: 02/05/17 10:51 Dose: 8.6 mg Simvastatin (Zocor) 20 mg PO BEDTIME [facility] Last Admin: 02/04/17 21:58 Dose: 20 mg Discontinued Medications Bupivacaine HCl (Marcaine 0.25%) Confirm Administered Dose 30 ml .ROUTE .STK- MED ONE Stop: 02/03/17 12:20 Last Admin: 02/03/17 14:32 Dose: 30 ml Cefazolin Sodium (Ancef) Confirm Administered Dose 2 gm .ROUTE .STK-MED ONE Stop: 02/03/17 11:23 Last Admin: 02/03/17 14:17 Dose: 2 gm Cefazolin Sodium (Ancef) Confirm Administered Dose 2 gm .ROUTE .STK-MED ONE Stop: 02/03/17 12:20 Morphine Sulfate 8 mg/Epinephrine HCl 0.3 mg/Cefuroxime Sodium 750 mg/Ketorolac Tromethamine 30 mg/Sodium Chloride 27.9 ml 0 mg .XX ONETIME ONE Stop: 02/03/17 12:01 Last Admin: 02/03/17 18:21 Dose: Not Given Diphenhydramine HCl (Benadryl) 25 mg IVPUSH Q4H PRN PRN Reason: Nausea Diphenhydramine HCl (Benadryl) 25 mg IVPUSH Q6H PRN PRN Reason: Pruritis Stop: 02/03/17 18:00 Diphenhydramine HCl (Benadryl) 25 mg PO ONETIME ONE Stop: 02/03/17 22:31 Last Admin: 02/03/17 22:39 Dose: 25 mg Ephedrine Sulfate (Ephedrine Sulfate) Confirm Administered Dose 50 mg .ROUTE .STK-MED ONE Stop: 02/03/17 11:23 Famotidine (Pepcid) 20 mg PO Q12H [facility] Famotidine (Pepcid) Confirm Administered Dose 20 mg .ROUTE .STK-MED ONE Stop: 02/03/17 12:15 Fentanyl (Sublimaze) Confirm Administered Dose 100 mcg .ROUTE .STK-MED ONE Stop: 02/03/17 11:24 Haloperidol Lactate (Haldol) 1 mg IVPUSH ONETIME ONE Stop: 02/03/17 14:16 Last Admin: 02/03/17 18:56 Dose: Not Given Lactated Ringer's (Ringers, Lactated) 1,000 mls @ 125 mls/hr IV ASDIRECTED [facility] Last Admin: 02/03/17 11:10 Dose: 125 mls/hr Cefazolin Sodium/Dextrose 2 gm (/ Premix) 50 mls @ 100 mls/hr IV Q8H [facility] Stop: 02/04/17 13:29 Last Admin: 02/04/17 12:08 Dose: 100 mls/hr Lidocaine HCl (Xylocaine-Mpf 1%) Confirm Administered Dose 4 mls @ as directed .ROUTE .STK-MED ONE Stop: 02/03/17 11:23 Iodine (Iodine 2% Mild Tincture) Confirm Administered Dose 30 ml .ROUTE .STK- MED ONE Stop: 02/03/17 12:20 Last Admin: 02/03/17 14:13 Dose: 18 ml Ketorolac Tromethamine (Toradol) 15 mg IVPUSH Q8H PRN PRN Reason: Pain Last Admin: 02/04/17 21:57 Dose: 15 mg Lidocaine/Sodium Bicarbonate (Buffered Lidocaine 1% In Ns 8.4%) 0.25 ml IV ONETIME PRN PRN Reason: Prior to IV Start Stop: 02/03/17 23:00 Last Admin: 02/03/17 11:09 Dose: 0.25 ml Midazolam HCl (Versed 1 Mg/Ml) Confirm Administered Dose 2 mg .ROUTE .STK-MED ONE Stop: 02/03/17 11:24 Midazolam HCl (Versed 1 Mg/Ml) Confirm Administered Dose 2 mg .ROUTE .STK-MED ONE Stop: 02/03/17 13:01 Morphine Sulfate (Duramorph Pf) Confirm Administered Dose 10 mg .ROUTE .STK-MED ONE Stop: 02/03/17 11:24 Ondansetron HCl (Zofran) 4 mg IVPUSH ONETIME PRN PRN Reason: Nausea/Vomiting Stop: 02/03/17 18:00 Propofol (Diprivan 20 Ml) Confirm Administered Dose 400 mg .ROUTE .STK-MED ONE Stop: 02/03/17 11:24 Propofol (Diprivan 20 Ml) Confirm Administered Dose 400 mg .ROUTE .STK-MED ONE Stop: 02/03/17 14:10 Scopolamine (Transderm-Scop) 1.5 mg TRDERM ONETIME ONE Stop: 02/03/17 12:31 Last Admin: 02/03/17 12:30 Dose: 1.5 mg Sodium Chloride (Saline Flush) 10 ml FLUSH ASDIRECTED PRN PRN Reason: Keep Vein Open Stop: 02/03/17 23:00 Tranexamic Acid (Cyklokapron) Confirm Administered Dose 1,000 mg .ROUTE .STK- MED ONE Stop: 02/03/17 12:20 Last Admin: 02/03/17 14:31 Dose: 1,000 mg Vancomycin HCl (Vancomycin) Confirm Administered Dose 1 gm .ROUTE .STK-MED ONE Stop: 02/03/17 12:20 Last Admin: 02/03/17 14:27 Dose: 1 gm - Exam Wound/Incisions: Dressing Dry and Intact General: Alert, Cooperative, No Acute Distress Lungs: Normal Respiratory Effort Extremities: Other (NVS intact for LLE. [place]'s negative. ) - Problem List Review Problem List Initiated/Reviewed/Updated: Yes - My Orders Last 24 Hours: Active Orders 24 hr Category Date Time Status Evaluate for Home Oxygen [RT Evaluate for Home Oxygen] Care 02/04/17 11:00 Active [RC] Click to Edit Ready for Discharge [RC] PER UNIT ROUTINE Care 02/05/17 10:48 Active Remove Patch Med 02/06/17 12:30 Once 0 ea TRDERM ONETIME ONE Medication Orders Aspirin (Ecotrin) 325 mg PO BID [facility] Last Admin: 02/05/17 08:51 Dose: 325 mg Admin: 02/04/17 21:58 Dose: 325 mg Admin: 02/04/17 08:22 Dose: 325 mg Bisacodyl (Dulcolax) 5 mg PO DAILY PRN PRN Reason: Constipation Last Admin: 02/05/17 10:51 Dose: 5 mg Calcium Carbonate/Glycine (Calcium Carbonate) 1,200 mg PO DAILY [facility] Last Admin: 02/05/17 08:51 Dose: 1,200 mg Admin: 02/04/17 08:22 Dose: 600 mg Cholecalciferol (Vitamin D3) 5,000 units PO DAILY [facility] Last Admin: 02/05/17 08:52 Dose: 5,000 units Admin: 02/04/17 08:21 Dose: 5,000 units Cyclobenzaprine HCl (Flexeril) 10 mg PO TID PRN PRN Reason: Spasms Docusate Sodium (Colace) 100 mg PO BID [facility] Last Admin: 02/05/17 08:51 Dose: 100 mg Admin: 02/04/17 21:58 Dose: 100 mg Admin: 02/04/17 08:23 Dose: 100 mg Admin: 02/03/17 20:05 Dose: 100 mg Hydrochlorothiazide (Hydrochlorothiazide) 12.5 mg PO DAILY [facility] Last Admin: 02/05/17 08:51 Dose: 12.5 mg Admin: 02/04/17 08:22 Dose: 12.5 mg Magnesium Hydroxide (Milk Of Magnesia) 30 ml PO BID PRN PRN Reason: Constipation Miscellaneous Information (Remove Patch) 0 ea TRDERM ONETIME ONE Stop: 02/06/17 12:31 Morphine Sulfate (Morphine) 2 mg IVPUSH Q2H PRN PRN Reason: Breakthrough Pain Last Admin: 02/04/17 16:16 Dose: 2 mg Naloxone HCl (Narcan) 0.1 mg IVPUSH Q5M PRN PRN Reason: Oversedation Ondansetron HCl (Zofran) 4 mg IVPUSH Q6H PRN PRN Reason: Nausea/Vomiting Last Admin: 02/05/17 09:38 Dose: 4 mg Admin: 02/04/17 12:08 Dose: 4 mg Oxycodone/Acetaminophen (Percocet 325-5 Mg) 1 - 2 tab PO Q4H PRN PRN Reason: Pain Last Admin: 02/05/17 06:03 Dose: 2 tab Admin: 02/04/17 22:32 Dose: 2 tab Admin: 02/04/17 18:48 Dose: 2 tab Admin: 02/04/17 12:57 Dose: 2 tab Admin: 02/04/17 08:23 Dose: 2 tab Admin: 02/04/17 03:59 Dose: 2 tab Admin: 02/03/17 21:38 Dose: 2 tab Pantoprazole Sodium (Protonix) 40 mg PO DAILY [facility] Last Admin: 02/05/17 08:52 Dose: Admin: 02/05/17 07:44 Dose: 40 mg Admin: 02/04/17 08:22 Dose: 40 mg Senna (Senna) 8.6 mg PO BID PRN PRN Reason: Constipation Last Admin: 02/05/17 10:51 Dose: 8.6 mg Simvastatin (Zocor) 20 mg PO BEDTIME [facility] Last Admin: 02/04/17 21:58 Dose: 20 mg Admin: 02/03/17 20:05 Dose: 20 mg - Assessment Assessment (Free Text/Narrative):: POD#2 - left TKA - Plan Plan (Free Text/Narrative):: 1. Discharge to home today. 2. 325mg ASA BID. Frequent mobility, TEDs. 3. Further orders per Hospitalist service. The pt's case was discussed with Dr. Coker.
--- NOTE | 2017-02-05 11:00 | PCM.DCSUM1 ---
Discharge Summary - Hospital Course Brief History: Muriel is a 66 yo female who underwent left TKA with Dr. Coker on 02-03-2017. The procedure was completed under spinal anesthesia with sedation. The pt tolerated the procedure well and was admitted to the Medical-Surgical Unit. Medical management was provided by the Hospitalist service. The pt's Hospital course was uneventful. The pt remained in Hospital until POD#2 due to need for monitoring of oxygen saturations. The pt's Hgb on POD#1 was 10.3. On POD#1, 325mg BID was initiated for VTE prophylaxis. SCDs and TEDs were also ordered. A Mepilex dressing was placed at the incision site at the time of surgery and remained clean and dry. The pt participated in P.T. and O.T. and progressed well. The pt was allowed to WBAT. On POD#2, the pt was deemed appropriate to discharge to home. - Discharge Data Discharge Date: 02/05/17 Discharge Disposition: Home, Self-Care 01 Condition: Good - Patient Summary/Data Consults: Consultations 02/03/17 07:29 Consult to Physician [CONS] Routine OT Evaluation and Treatment [CONS] Routine 02/03/17 07:36 PT Evaluation and Treatment [CONS] Routine - Patient Instructions Diet: Usual Diet as Tolerated Activity: Apply Ice, As Tolerated, Elevate Extremity, Full Weight Bearing Driving: Do Not Drive Showering/Bathing: May Shower Wound/Incision Care: Keep Operative Site/Wound Site Clean and Dry, Do NOT Change Dressing Notify Provider of: Fever, Increased Pain, Swelling and Redness, Drainage, Nausea and/or Vomiting Other/Special Instructions: Please get up and moving around every hour while awake. This helps to prevent blood clots. Have help with mobility as needed and use the walker or crutches. Please take a 325mg aspirin TWICE daily. This helps to prevent blood clots. The medication is being used for blood clot prevention and not for pain management, so please do not miss a dose of the medication. Wear the LANDEN hose during the day and you may remove these at night. Schedule for physical therapy. Complete the exercises that were taught in the Hospital until you are able to attend P.T. Elevate the limb to decrease swelling. Use the ice machine often. Use the pain medication as needed. The medication may cause drowsiness and/or constipation. If you notice increased drowsiness, please try to increase the time between doses or try 1 pill or 1/2 tablet. You could use a stool softener like docusate sodium or Colace 100mg twice daily and/or a laxative like Miralax daily. Contact your primary care provider for other instructions if you are constipated. Use the incentive spirometer often. Keep the dressing at the surgical site in place until follow- up at the Clinic. Please call the Clinic with questions or concerns [phone]. - Discharge Plan Prescriptions/Med Rec: Acetaminophen/oxyCODONE [Percocet 325-5 MG] 1 - 2 tab PO Q4H PRN #60 tablet PRN Reason: Pain Aspirin [Ecotrin] 325 mg PO BID #56 tab.ec Cyclobenzaprine [Flexeril] 10 mg PO TID PRN #40 tablet PRN Reason: Spasms Ondansetron [Zofran ODT] 4 mg PO Q6H PRN #20 tab.dis PRN Reason: Nausea Home Medications: Home Meds Aspirin/Acetaminophen/Caffeine [Migraine Relief Caplet] 2 tab PO Q6H PRN [History] Calcium Carbonate [Calcium] 1,200 mg PO DAILY 01/31/17 [History] Hydrochlorothiazide 12.5 mg PO DAILY 01/31/17 [History] Multivitamin [Daily Oliver] 1 tab PO DAILY 01/31/17 [History] Omeprazole Magnesium [Prilosec Otc] 20 mg PO DAILY 01/31/17 [History] Simvastatin [Zocor] 20 mg PO BEDTIME 01/31/17 [History] Cholecalciferol (Vitamin D3) [Vitamin D] 1 tab PO DAILY 02/03/17 [History] Acetaminophen/oxyCODONE [Percocet 325-5 MG] 1 - 2 tab PO Q4H PRN #60 tablet [Rx] Aspirin [Ecotrin] 325 mg PO BID #56 tab.ec 02/05/17 [Rx] Bisacodyl [Dulcolax] 5 mg PO DAILY PRN tablet 02/05/17 [Rx] Cyclobenzaprine [Flexeril] 10 mg PO TID PRN #40 tablet 02/05/17 [Rx] Docusate Sodium [Colace] 100 mg PO BID cap 02/05/17 [Rx] Magnesium Hydroxide [Milk of Magnesia] 30 ml PO BID PRN cup 02/05/17 [Rx] Ondansetron [Zofran ODT] 4 mg PO Q6H PRN #20 tab.dis 02/05/17 [Rx] Sennosides [Senna] 8.6 mg PO BID PRN tablet 02/05/17 [Rx] traMADol HCl [Tramadol HCl] 50 mg PO QID PRN #0 02/05/17 [Rx] Patient Handouts: Total Knee Replacement, Care After, [id number], Total Knee Replacement, [id number], Knee Rehabilitation Guidelines Following Surgery Referrals: Maura Sheldon PA-C [Physician Die Operator] - 02/11/17 9:30 am (Please check in at 9:15am) - Patient Data Vitals - Most Recent: Last Vital Signs Temp 97.7 F 02/05/17 08:29 Pulse 82 02/05/17 08:29 Resp 24 H 02/05/17 08:29 BP 150/52 H 02/05/17 08:29 Pulse Ox 93 L 02/05/17 08:32 Weight - Most Recent: 237 lb 1 oz I&O - Last 24 hours: Intake & Output 02/04/17 02/05/17 02/05/17 22:59 06:59 14:59 Intake Total 1430 600 120 Output Total 250 700 Balance 1180 -100 120 Lab Results - Last 24 hrs: Laboratory Results - last 24 hr 02/05/17 02/05/17 Range/Units 07:10 07:10 WBC 9.47 (3.98-10.04) K/mm3 RBC 3.12 L (3.98-5.22) M/mm3 Hgb 9.6 L (11.2-15.7) gm/L Hct 28.6 L (34.1-44.9) % MCV 91.7 (79.4-94.8) fl MCH 30.8 (25.6-32.2) pg MCHC 33.6 (32.2-35.5) g/dl RDW Std Deviation 43.7 (36.4-46.3) fL Plt Count 155 L (182-369) K/mm3 MPV 11.7 (9.4-12.3) fl Neut % (Auto) 72.6 H (34.0-71.1) % Lymph % (Auto) 13.6 L (19.3-51.7) % [place] % (Auto) 11.2 (4.7-12.5) % Eos % (Auto) 2.3 (0.7-5.8) Baso % (Auto) 0.1 (0.1-1.2) % Neut # (Auto) 6.87 H (1.56-6.13) K/mm3 Lymph # (Auto) 1.29 (1.18-3.74) K/mm3 [place] # (Auto) 1.06 H (0.24-0.36) K/mm3 Eos # (Auto) 0.22 (0.04-0.36) K/mm3 Baso # (Auto) 0.01 (0.01-0.08) K/mm3 Sodium 131 L (136-145) mEq/L Potassium 3.4 L (3.5-5.1) mEq/L Chloride 97 L (98-107) mEq/L Carbon Dioxide 31 (21-32) mEq/L Anion Gap 6.4 (5-15) BUN 11 (7-18) mg/dL Creatinine 0.7 (0.55-1.02) mg/dL Est Cr Clr Drug Dosing 58.04 mL/min Estimated GFR (MDRD) > 60 (>60) mL/min BUN/Creatinine Ratio 15.7 (14-18) Glucose 106 (80-115) mg/dL Calcium 8.0 L (8.5-10.1) mg/dL Med Orders - Current: Current Medications Aspirin (Ecotrin) 325 mg PO BID [facility] Last Admin: 02/05/17 08:51 Dose: 325 mg Bisacodyl (Dulcolax) 5 mg PO DAILY PRN PRN Reason: Constipation Last Admin: 02/05/17 10:51 Dose: 5 mg Calcium Carbonate/Glycine (Calcium Carbonate) 1,200 mg PO DAILY [facility] Last Admin: 02/05/17 08:51 Dose: 1,200 mg Cholecalciferol (Vitamin D3) 5,000 units PO DAILY [facility] Last Admin: 02/05/17 08:52 Dose: 5,000 units Cyclobenzaprine HCl (Flexeril) 10 mg PO TID PRN PRN Reason: Spasms Docusate Sodium (Colace) 100 mg PO BID [facility] Last Admin: 02/05/17 08:51 Dose: 100 mg Hydrochlorothiazide (Hydrochlorothiazide) 12.5 mg PO DAILY [facility] Last Admin: 02/05/17 08:51 Dose: 12.5 mg Magnesium Hydroxide (Milk Of Magnesia) 30 ml PO BID PRN PRN Reason: Constipation Miscellaneous Information (Remove Patch) 0 ea TRDERM ONETIME ONE Stop: 02/06/17 12:31 Morphine Sulfate (Morphine) 2 mg IVPUSH Q2H PRN PRN Reason: Breakthrough Pain Last Admin: 02/04/17 16:16 Dose: 2 mg Naloxone HCl (Narcan) 0.1 mg IVPUSH Q5M PRN PRN Reason: Oversedation Ondansetron HCl (Zofran) 4 mg IVPUSH Q6H PRN PRN Reason: Nausea/Vomiting Last Admin: 02/05/17 09:38 Dose: 4 mg Oxycodone/Acetaminophen (Percocet 325-5 Mg) 1 - 2 tab PO Q4H PRN PRN Reason: Pain Last Admin: 02/05/17 06:03 Dose: 2 tab Pantoprazole Sodium (Protonix) 40 mg PO DAILY [facility] Last Admin: 02/05/17 08:52 Dose: Not Given Senna (Senna) 8.6 mg PO BID PRN PRN Reason: Constipation Last Admin: 02/05/17 10:51 Dose: 8.6 mg Simvastatin (Zocor) 20 mg PO BEDTIME [facility] Last Admin: 02/04/17 21:58 Dose: 20 mg Discontinued Medications Bupivacaine HCl (Marcaine 0.25%) Confirm Administered Dose 30 ml .ROUTE .STK- MED ONE Stop: 02/03/17 12:20 Last Admin: 02/03/17 14:32 Dose: 30 ml Cefazolin Sodium (Ancef) Confirm Administered Dose 2 gm .ROUTE .STK-MED ONE Stop: 02/03/17 11:23 Last Admin: 02/03/17 14:17 Dose: 2 gm Cefazolin Sodium (Ancef) Confirm Administered Dose 2 gm .ROUTE .STK-MED ONE Stop: 02/03/17 12:20 Morphine Sulfate 8 mg/Epinephrine HCl 0.3 mg/Cefuroxime Sodium 750 mg/Ketorolac Tromethamine 30 mg/Sodium Chloride 27.9 ml 0 mg .XX ONETIME ONE Stop: 02/03/17 12:01 Last Admin: 02/03/17 18:21 Dose: Not Given Diphenhydramine HCl (Benadryl) 25 mg IVPUSH Q4H PRN PRN Reason: Nausea Diphenhydramine HCl (Benadryl) 25 mg IVPUSH Q6H PRN PRN Reason: Pruritis Stop: 02/03/17 18:00 Diphenhydramine HCl (Benadryl) 25 mg PO ONETIME ONE Stop: 02/03/17 22:31 Last Admin: 02/03/17 22:39 Dose: 25 mg Ephedrine Sulfate (Ephedrine Sulfate) Confirm Administered Dose 50 mg .ROUTE .STK-MED ONE Stop: 02/03/17 11:23 Famotidine (Pepcid) 20 mg PO Q12H [facility] Famotidine (Pepcid) Confirm Administered Dose 20 mg .ROUTE .STK-MED ONE Stop: 02/03/17 12:15 Fentanyl (Sublimaze) Confirm Administered Dose 100 mcg .ROUTE .STK-MED ONE Stop: 02/03/17 11:24 Haloperidol Lactate (Haldol) 1 mg IVPUSH ONETIME ONE Stop: 02/03/17 14:16 Last Admin: 02/03/17 18:56 Dose: Not Given Lactated Ringer's (Ringers, Lactated) 1,000 mls @ 125 mls/hr IV ASDIRECTED [facility] Last Admin: 02/03/17 11:10 Dose: 125 mls/hr Cefazolin Sodium/Dextrose 2 gm (/ Premix) 50 mls @ 100 mls/hr IV Q8H [facility] Stop: 02/04/17 13:29 Last Admin: 02/04/17 12:08 Dose: 100 mls/hr Lidocaine HCl (Xylocaine-Mpf 1%) Confirm Administered Dose 4 mls @ as directed .ROUTE .STK-MED ONE Stop: 02/03/17 11:23 Iodine (Iodine 2% Mild Tincture) Confirm Administered Dose 30 ml .ROUTE .STK- MED ONE Stop: 02/03/17 12:20 Last Admin: 02/03/17 14:13 Dose: 18 ml Ketorolac Tromethamine (Toradol) 15 mg IVPUSH Q8H PRN PRN Reason: Pain Last Admin: 02/04/17 21:57 Dose: 15 mg Lidocaine/Sodium Bicarbonate (Buffered Lidocaine 1% In Ns 8.4%) 0.25 ml IV ONETIME PRN PRN Reason: Prior to IV Start Stop: 02/03/17 23:00 Last Admin: 02/03/17 11:09 Dose: 0.25 ml Midazolam HCl (Versed 1 Mg/Ml) Confirm Administered Dose 2 mg .ROUTE .STK-MED ONE Stop: 02/03/17 11:24 Midazolam HCl (Versed 1 Mg/Ml) Confirm Administered Dose 2 mg .ROUTE .STK-MED ONE Stop: 02/03/17 13:01 Morphine Sulfate (Duramorph Pf) Confirm Administered Dose 10 mg .ROUTE .STK-MED ONE Stop: 02/03/17 11:24 Ondansetron HCl (Zofran) 4 mg IVPUSH ONETIME PRN PRN Reason: Nausea/Vomiting Stop: 02/03/17 18:00 Propofol (Diprivan 20 Ml) Confirm Administered Dose 400 mg .ROUTE .STK-MED ONE Stop: 02/03/17 11:24 Propofol (Diprivan 20 Ml) Confirm Administered Dose 400 mg .ROUTE .STK-MED ONE Stop: 02/03/17 14:10 Scopolamine (Transderm-Scop) 1.5 mg TRDERM ONETIME ONE Stop: 02/03/17 12:31 Last Admin: 02/03/17 12:30 Dose: 1.5 mg Sodium Chloride (Saline Flush) 10 ml FLUSH ASDIRECTED PRN PRN Reason: Keep Vein Open Stop: 02/03/17 23:00 Tranexamic Acid (Cyklokapron) Confirm Administered Dose 1,000 mg .ROUTE .STK- MED ONE Stop: 02/03/17 12:20 Last Admin: 02/03/17 14:31 Dose: 1,000 mg Vancomycin HCl (Vancomycin) Confirm Administered Dose 1 gm .ROUTE .STK-MED ONE Stop: 02/03/17 12:20 Last Admin: 02/03/17 14:27 Dose: 1 gm *Q Meaningful Use (DIS) - VTE *Q VTE Criteria *Q: - Stroke *Q Stroke Criteria *Q: - AMI *Q AMI Criteria *Q:
[2017-02-05] MEDS ORDERED: Diphtheria,Pertussis(Acell),Tetanus Vaccine 0.5 ML SDV IM ONE (11:23)
[2017-02-05] MEDS ORDERED: Pneumococcal 13-Valent Conjugate Vaccine 0.5 ML Syringe IM ONE (11:23)
--- NOTE | 2017-02-05 12:14 | PCM.CONSN ---
- General Info Date of Service: 02/05/17 Admission Dx/Problem (Free Text): S/P left knee arthroplasty Subjective Update: 66 year old female with left knee OA presents post op. She is day 1 S/P left total knee arthroplasty. The hospitalist service has been consulted to assist with medical management. Functional Status: Reports: Pain Controlled, Tolerating Diet, Ambulating, Urinating, Incentive Spirometry. Denies: New Symptoms - Review of Systems General: Reports: No Symptoms HEENT: Reports: No Symptoms Pulmonary: Reports: No Symptoms Cardiovascular: Reports: No Symptoms Gastrointestinal: Reports: No Symptoms Genitourinary: Reports: No Symptoms Musculoskeletal: Reports: Leg Pain Skin: Reports: No Symptoms Neurological: Reports: No Symptoms Psychiatric: Reports: No Symptoms - Patient Data Vitals - Most Recent: Last Vital Signs Temp 97.7 F 02/05/17 08:29 Pulse 82 02/05/17 08:29 Resp 24 H 02/05/17 08:29 BP 150/52 H 02/05/17 08:29 Pulse Ox 93 L 02/05/17 08:32 Weight - Most Recent: 237 lb 1 oz I&O - Last 24 Hours: Intake & Output 02/04/17 02/05/17 02/05/17 22:59 06:59 14:59 Intake Total 1430 600 120 Output Total 250 700 Balance 1180 -100 120 Lab Results Last 24 Hours: Laboratory Results - last 24 hr 02/05/17 02/05/17 Range/Units 07:10 07:10 WBC 9.47 (3.98-10.04) K/mm3 RBC 3.12 L (3.98-5.22) M/mm3 Hgb 9.6 L (11.2-15.7) gm/L Hct 28.6 L (34.1-44.9) % MCV 91.7 (79.4-94.8) fl MCH 30.8 (25.6-32.2) pg MCHC 33.6 (32.2-35.5) g/dl RDW Std Deviation 43.7 (36.4-46.3) fL Plt Count 155 L (182-369) K/mm3 MPV 11.7 (9.4-12.3) fl Neut % (Auto) 72.6 H (34.0-71.1) % Lymph % (Auto) 13.6 L (19.3-51.7) % [place] % (Auto) 11.2 (4.7-12.5) % Eos % (Auto) 2.3 (0.7-5.8) Baso % (Auto) 0.1 (0.1-1.2) % Neut # (Auto) 6.87 H (1.56-6.13) K/mm3 Lymph # (Auto) 1.29 (1.18-3.74) K/mm3 [place] # (Auto) 1.06 H (0.24-0.36) K/mm3 Eos # (Auto) 0.22 (0.04-0.36) K/mm3 Baso # (Auto) 0.01 (0.01-0.08) K/mm3 Sodium 131 L (136-145) mEq/L Potassium 3.4 L (3.5-5.1) mEq/L Chloride 97 L (98-107) mEq/L Carbon Dioxide 31 (21-32) mEq/L Anion Gap 6.4 (5-15) BUN 11 (7-18) mg/dL Creatinine 0.7 (0.55-1.02) mg/dL Est Cr Clr Drug Dosing 58.04 mL/min Estimated GFR (MDRD) > 60 (>60) mL/min BUN/Creatinine Ratio 15.7 (14-18) Glucose 106 (80-115) mg/dL Calcium 8.0 L (8.5-10.1) mg/dL Med Orders - Current: Current Medications Aspirin (Ecotrin) 325 mg PO BID COUNTS INCLUDE 234 BEDS AT THE [facility] Last Admin: 02/05/17 08:51 Dose: 325 mg Bisacodyl (Dulcolax) 5 mg PO DAILY PRN PRN Reason: Constipation Last Admin: 02/05/17 10:51 Dose: 5 mg Calcium Carbonate/Glycine (Calcium Carbonate) 1,200 mg PO DAILY COUNTS INCLUDE 234 BEDS AT THE [facility] Last Admin: 02/05/17 08:51 Dose: 1,200 mg Cholecalciferol (Vitamin D3) 5,000 units PO DAILY COUNTS INCLUDE 234 BEDS AT THE [facility] Last Admin: 02/05/17 08:52 Dose: 5,000 units Cyclobenzaprine HCl (Flexeril) 10 mg PO TID PRN PRN Reason: Spasms Docusate Sodium (Colace) 100 mg PO BID COUNTS INCLUDE 234 BEDS AT THE [facility] Last Admin: 02/05/17 08:51 Dose: 100 mg Hydrochlorothiazide (Hydrochlorothiazide) 12.5 mg PO DAILY COUNTS INCLUDE 234 BEDS AT THE [facility] Last Admin: 02/05/17 08:51 Dose: 12.5 mg Magnesium Hydroxide (Milk Of Magnesia) 30 ml PO BID PRN PRN Reason: Constipation Miscellaneous Information (Remove Patch) 0 ea TRDERM ONETIME ONE Stop: 02/06/17 12:31 Morphine Sulfate (Morphine) 2 mg IVPUSH Q2H PRN PRN Reason: Breakthrough Pain Last Admin: 02/04/17 16:16 Dose: 2 mg Naloxone HCl (Narcan) 0.1 mg IVPUSH Q5M PRN PRN Reason: Oversedation Ondansetron HCl (Zofran) 4 mg IVPUSH Q6H PRN PRN Reason: Nausea/Vomiting Last Admin: 02/05/17 09:38 Dose: 4 mg Oxycodone/Acetaminophen (Percocet 325-5 Mg) 1 - 2 tab PO Q4H PRN PRN Reason: Pain Last Admin: 02/05/17 06:03 Dose: 2 tab Pantoprazole Sodium (Protonix) 40 mg PO DAILY COUNTS INCLUDE 234 BEDS AT THE [facility] Last Admin: 02/05/17 08:52 Dose: Not Given Senna (Senna) 8.6 mg PO BID PRN PRN Reason: Constipation Last Admin: 02/05/17 10:51 Dose: 8.6 mg Simvastatin (Zocor) 20 mg PO BEDTIME COUNTS INCLUDE 234 BEDS AT THE [facility] Last Admin: 02/04/17 21:58 Dose: 20 mg Discontinued Medications Bupivacaine HCl (Marcaine 0.25%) Confirm Administered Dose 30 ml .ROUTE .STK- MED ONE Stop: 02/03/17 12:20 Last Admin: 02/03/17 14:32 Dose: 30 ml Cefazolin Sodium (Ancef) Confirm Administered Dose 2 gm .ROUTE .STK-MED ONE Stop: 02/03/17 11:23 Last Admin: 02/03/17 14:17 Dose: 2 gm Cefazolin Sodium (Ancef) Confirm Administered Dose 2 gm .ROUTE .STK-MED ONE Stop: 02/03/17 12:20 Morphine Sulfate 8 mg/Epinephrine HCl 0.3 mg/Cefuroxime Sodium 750 mg/Ketorolac Tromethamine 30 mg/Sodium Chloride 27.9 ml 0 mg .XX ONETIME ONE Stop: 02/03/17 12:01 Last Admin: 02/03/17 18:21 Dose: Not Given Diphenhydramine HCl (Benadryl) 25 mg IVPUSH Q4H PRN PRN Reason: Nausea Diphenhydramine HCl (Benadryl) 25 mg IVPUSH Q6H PRN PRN Reason: Pruritis Stop: 02/03/17 18:00 Diphenhydramine HCl (Benadryl) 25 mg PO ONETIME ONE Stop: 02/03/17 22:31 Last Admin: 02/03/17 22:39 Dose: 25 mg Diphtheria/Tetanus/Acell Pertussis (Adacel) 0.5 ml IM .ONCE ONE Stop: 02/05/17 11:24 Last Admin: 02/05/17 11:52 Dose: 0.5 ml Ephedrine Sulfate (Ephedrine Sulfate) Confirm Administered Dose 50 mg .ROUTE .STK-MED ONE Stop: 02/03/17 11:23 Famotidine (Pepcid) 20 mg PO Q12H COUNTS INCLUDE 234 BEDS AT THE [facility] Famotidine (Pepcid) Confirm Administered Dose 20 mg .ROUTE .STK-MED ONE Stop: 02/03/17 12:15 Fentanyl (Sublimaze) Confirm Administered Dose 100 mcg .ROUTE .STK-MED ONE Stop: 02/03/17 11:24 Haloperidol Lactate (Haldol) 1 mg IVPUSH ONETIME ONE Stop: 02/03/17 14:16 Last Admin: 02/03/17 18:56 Dose: Not Given Lactated Ringer's (Ringers, Lactated) 1,000 mls @ 125 mls/hr IV ASDIRECTED COUNTS INCLUDE 234 BEDS AT THE [facility] Last Admin: 02/03/17 11:10 Dose: 125 mls/hr Cefazolin Sodium/Dextrose 2 gm (/ Premix) 50 mls @ 100 mls/hr IV Q8H COUNTS INCLUDE 234 BEDS AT THE [facility] Stop: 02/04/17 13:29 Last Admin: 02/04/17 12:08 Dose: 100 mls/hr Lidocaine HCl (Xylocaine-Mpf 1%) Confirm Administered Dose 4 mls @ as directed .ROUTE .STK-MED ONE Stop: 02/03/17 11:23 Iodine (Iodine 2% Mild Tincture) Confirm Administered Dose 30 ml .ROUTE .STK- MED ONE Stop: 02/03/17 12:20 Last Admin: 02/03/17 14:13 Dose: 18 ml Ketorolac Tromethamine (Toradol) 15 mg IVPUSH Q8H PRN PRN Reason: Pain Last Admin: 02/04/17 21:57 Dose: 15 mg Lidocaine/Sodium Bicarbonate (Buffered Lidocaine 1% In Ns 8.4%) 0.25 ml IV ONETIME PRN PRN Reason: Prior to IV Start Stop: 02/03/17 23:00 Last Admin: 02/03/17 11:09 Dose: 0.25 ml Midazolam HCl (Versed 1 Mg/Ml) Confirm Administered Dose 2 mg .ROUTE .STK-MED ONE Stop: 02/03/17 11:24 Midazolam HCl (Versed 1 Mg/Ml) Confirm Administered Dose 2 mg .ROUTE .STK-MED ONE Stop: 02/03/17 13:01 Morphine Sulfate (Duramorph Pf) Confirm Administered Dose 10 mg .ROUTE .STK-MED ONE Stop: 02/03/17 11:24 Ondansetron HCl (Zofran) 4 mg IVPUSH ONETIME PRN PRN Reason: Nausea/Vomiting Stop: 02/03/17 18:00 Pneumococcal 13-Valent Conj Vacc (Prevnar 13) 0.5 ml IM .ONCE ONE Stop: 02/05/17 11:24 Last Admin: 02/05/17 11:38 Dose: 0.5 ml Propofol (Diprivan 20 Ml) Confirm Administered Dose 400 mg .ROUTE .STK-MED ONE Stop: 02/03/17 11:24 Propofol (Diprivan 20 Ml) Confirm Administered Dose 400 mg .ROUTE .STK-MED ONE Stop: 02/03/17 14:10 Scopolamine (Transderm-Scop) 1.5 mg TRDERM ONETIME ONE Stop: 02/03/17 12:31 Last Admin: 02/03/17 12:30 Dose: 1.5 mg Sodium Chloride (Saline Flush) 10 ml FLUSH ASDIRECTED PRN PRN Reason: Keep Vein Open Stop: 02/03/17 23:00 Tranexamic Acid (Cyklokapron) Confirm Administered Dose 1,000 mg .ROUTE .STK- MED ONE Stop: 02/03/17 12:20 Last Admin: 02/03/17 14:31 Dose: 1,000 mg Vancomycin HCl (Vancomycin) Confirm Administered Dose 1 gm .ROUTE .STK-MED ONE Stop: 02/03/17 12:20 Last Admin: 02/03/17 14:27 Dose: 1 gm - Exam Quality Assessment: DVT Prophylaxis. No: Supplemental Oxygen General: Alert, Oriented, Cooperative HEENT: Pupils Equal, Pupils Reactive, Mucous Membr. Moist/[place] Neck: Supple, Trachea Midline, No JVD Lungs: Clear to Auscultation, Normal Respiratory Effort, Decreased Breath Sounds Cardiovascular: Regular Rate, Regular Rhythm GI/Abdominal Exam: Normal Bowel Sounds, Soft, Non-Tender, No Organomegaly, No Distention, No Abnormal Bruit, No Mass, Pelvis Stable (Female) Exam: Deferred Back Exam: Normal Inspection Extremities: Normal Inspection, Normal Range of Motion, No Pedal Edema, Normal Capillary Refill Peripheral Pulses: 2+: Radial (L), Radial (R), Posterior Tibial (R), Dorsalis Pedis (R) Skin: Warm, Dry, Intact Wound/Incisions: Dressing Dry and Intact, No Drainage Neurological: No New Focal Deficit Psy/Mental Status: Alert, Normal Affect, Normal Mood Consult PN Assessment/Plan POD#: 2 Procedures: Procedures BONE IMAGING 3 PHASE (12/05/16) MICROBE SUSCEPTIBLE HENRY (10/26/16) URINE BACTERIA CULTURE (10/26/16) URINE CULTURE/COLONY COUNT (10/26/16) X-RAY EXAM OF WRIST (10/27/13) (1) Status post left knee replacement SNOMED Code(s): 6971599388999, 2635015775174 Code(s): Z96.652 - PRESENCE OF LEFT ARTIFICIAL KNEE JOINT Priority: High Current Visit: Yes (2) HLD (hyperlipidemia) SNOMED Code(s): 84369579 Code(s): E78.5 - HYPERLIPIDEMIA, UNSPECIFIED Priority: Low Current Visit : No Qualifiers: Hyperlipidemia type: unspecified Qualified Code(s): E78.5 - Hyperlipidemia , unspecified (3) Mitral regurgitation SNOMED Code(s): 90031024 Code(s): I34.0 - NONRHEUMATIC MITRAL (VALVE) INSUFFICIENCY Priority: Medium Current Visit: Yes Qualifiers: Cardiac valve disease etiology: etiology unspecified Qualified Code(s): I34.0 - Nonrheumatic mitral (valve) insufficiency (4) LORRI (obstructive sleep apnea) SNOMED Code(s): 23186994 Code(s): G47.33 - OBSTRUCTIVE SLEEP APNEA (ADULT) (PEDIATRIC) Priority: Low Current Visit: Yes (5) Osteoarthritis SNOMED Code(s): 728233738 Code(s): M19.90 - UNSPECIFIED OSTEOARTHRITIS, UNSPECIFIED SITE Priority: Low Current Visit: Yes Qualifiers: Osteoarthritis location: unspecified site Osteoarthritis type: unspecified Qualified Code(s): M19.90 - Unspecified osteoarthritis, unspecified site (6) HTN (hypertension) SNOMED Code(s): 34706396 Code(s): I10 - ESSENTIAL (PRIMARY) HYPERTENSION Priority: Medium Current Visit: Yes Qualifiers: Hypertension type: unspecified Qualified Code(s): I10 - Essential (primary ) hypertension (7) GERD (gastroesophageal reflux disease) SNOMED Code(s): 647110035 Code(s): K21.9 - GASTRO-ESOPHAGEAL REFLUX DISEASE WITHOUT ESOPHAGITIS Priority: Low Current Visit: No Qualifiers: Esophagitis presence: esophagitis presence not specified Qualified Code(s) : K21.9 - Gastro-esophageal reflux disease without esophagitis (8) Depression SNOMED Code(s): 78579068 Code(s): F32.9 - MAJOR DEPRESSIVE DISORDER, SINGLE EPISODE, UNSPECIFIED Priority: Low Current Visit: Yes Qualifiers: Depression Type: unspecified Qualified Code(s): F32.9 - Major depressive disorder, single episode, unspecified (9) Hypoxia SNOMED Code(s): 287085700, 390798125 Code(s): R09.02 - HYPOXEMIA Priority: High Current Visit: Yes Problem List Initiated/Reviewed/Updated: Yes Plan: Impression: Patient had low oxygen saturation yesterday on several occasions. This was addressed in the prior note. Today saturations have been good. PT reports patient walked several feet and when returning back to bed saturations dropped but rebounded very quickly. RTC in to see patient. Reports she feels comfortable discharging patient without home oxygen. Reports patient needs to monitor LORRI and wear her CPAP. Patient is moderately sleepy due to pain medications. Advised patient to wear her CPAP when napping as well as when going to bed for the night. We'll discuss the importance of this with family in addition to patient as her oxygen sats do drop when she is sleeping. From a medical standpoint she is clear for discharge pending approval from orthopedic service. Left knee arthroplasty, POD 2 Chronic: Depression OA HLD MR Sleep apnea Plan: Home meds Daily labs Pain/DVT medical mgt per primary service CM/PT/OT Discharge today pending ortho approval.
[2017-02-05] MEDS ORDERED: Metoclopramide 10 MG/2 ML SDV IVPUSH PRN (12:41)
[2017-02-05] MEDS ORDERED: Scopolamine 1.5 MG Transdermal Patch TRDERM PRN (13:33)
[2017-02-05 15:48] VITALS: BP 134/70
--- NOTE | 2017-02-05 23:04 | PCM.OPNOTE ---
- General Post-Op/Procedure Note Date of Surgery/Procedure: 02/03/17 Operative Procedure(s): left total knee arthroplasty Pre Op Diagnosis: left knee osteoarthrosis Post-Op Diagnosis: Same Anesthesia Technique: Local, MAC, Spinal Primary Surgeon: Ludwig Coker Anesthesia Provider: Bertha Roque Collar Setter: Susan Sherman Collar Setter: Byron Valenzuela EBL in mLs: 380 Complications: None Condition: Good Free Text/Narrative:: Intake & Output 02/05/17 02/05/17 02/06/17 14:59 22:59 06:59 Intake Total 120 1400 Output Total 1500 Balance 120 -100
--- NOTE | 2017-02-05 23:52 | OR ---
DATE OF OPERATION: 02/03/2017 SURGEON: Ludwig Coker MD OPERATION PERFORMED: Left total knee arthroplasty. PREOPERATIVE DIAGNOSIS: Left knee osteoarthrosis. POSTOPERATIVE DIAGNOSIS: Left knee osteoarthrosis. ANESTHESIA: Local MAC and spinal. ANESTHESIA PROVIDER: Abimbola Oglesby CRNA. ASSISTANTS: Susan Sherman LPN, and Byron Valenzuela M.D. ESTIMATED BLOOD LOSS: 380 mL. COMPLICATIONS: None. CONDITION: Stable. IMPLANTS: 1. [place] size 5 PS press-fit femur. 2. [place] size 4 press-fit universal tibial baseplate. 3. [place] size 4, 9 mm PS X3 polyethylene. 4. [place] 29 x 9 mm press-fit asymmetric patella. DESCRIPTION OF PROCEDURE: The patient was identified in the preop holding area. Proper site was marked and identified by the surgeon. The patient was taken back to the operating theater, where after adequate anesthesia, the patient's left lower extremity had a nonsterile tourniquet applied. It was then sterilely prepped and draped in the usual sterile fashion. OR time-out was performed. The patient received 2 g IV Ancef. At this time, left lower extremity was exsanguinated. Tourniquet was insufflated to 250 mmHg. Standard anterior incision was made, and the medial parapatellar arthrotomy was created. Deep fibers of the MCL were raised, and the anterior fat pad was resected. At this time, attention was turned to the patella. Patella measured 22 and was resected to a 13 for a 29 x 9 mm patella. Drill holes were then drilled for a press-fit patella and was found to be in adequate position. At this time, attention was turned to the femur. A drill hole was then drilled intramedullary at the insertion of the ACL just anterior to the insertion of the PCL. At this time, the intramedullary distal femoral cutting guide was then placed and 8 mm was resected off the distal femur. It was found to be an adequate resection. Sizing guide was then placed. It was found to be a size 5 femur. Epicondylar axis holes were then drilled using [place] line and epicondyles as reference. A 4-in-1 cutting block was then placed for the size 5 femur. Anterior-posterior and anterior and posterior chamfer cuts were then completed and found to be adequate. Osteophytes were then resected. A box cut was then completed for a size 5 femur and was found to be adequate. Attention was turned to the tibia. The posterior medial and lateral retractors were placed, and the extramedullary tibial cutting guide was then placed in the old footprint of the ACL. This was aligned for the middle of the ankle and roughly the second ray. 0-3 degrees of slope was also dialled in and 9 mm was resected off the unaffected lateral side. At this time, it was found to be an adequate resection. The medial and lateral meniscus were removed along with any posterior osteophytes. At this time, the size 4 baseplate was found to have adequate coverage. This was then stamped and drilled in proper rotation for a press-fit tibia. All trial components were then placed. The patient had knee full extension and flexion with no signs of varus/valgus instability and patella was tracking centrally. At this time, size 4 [place] tibial baseplate press-fit was opened as well as size 5 press-fit femur, and a 29 x 9 mm press-fit patella. The size 4 tibia was then impacted into place and was found to have adequate fixation with no locking. The size 5 femur was impacted in place. A 9 mm X3 PS polyethylene was then impacted into place, and a 29 x 9 mm patella was press-fit into place. The patient's knee had full range of motion, was stable throughout, and the patella was tracking centrally. At this time, the patient's knee was brought into full extension. The tourniquet was deflated. All bleeders were cauterized. 1 L dilute Betadine solution was irrigated through the knee along with 3 L of pulse lavage irrigation with Ancef. Topical tranexamic acid was placed along with 1 g of vancomycin powder in the wound. #2 barbed suture was used for closure of the medial and parapatellar arthrotomy. The periarticular injection was completed before this was done. 2- 0 Vicryl was used subcutaneously and running 3-0 Monocryl, and Prineo was used for the skin. The patient tolerated the procedure well and was sent to the PACU in stable condition. MMODAL /[id number]
== END 2017-02-05 16:15 | disposition home or self-care (01) | DRG 470 ==
LOC: JD.MS 10:39
PROVIDERS: ADMIT Orthopaedic Surgery; ATTEND Orthopaedic Surgery
PROC: 0SRD0J9 Replacement of Left Knee Joint with Synthetic Substitute, Cemented, Open Approach (ICD-10-PCS; principal; 2017-02-03)
DX: M17.12 Unilateral primary osteoarthritis, left knee (principal); I10 Essential (primary) hypertension; M81.0 Age-related osteoporosis without current pathological fracture; E78.5 Hyperlipidemia, unspecified; F32.9 Major depressive disorder, single episode, unspecified; G47.33 Obstructive sleep apnea (adult) (pediatric); E66.9 Obesity, unspecified; Z88.1 Allergy status to other antibiotic agents; Z88.8 Allergy status to other drugs, medicaments and biological substances; Z91.030 Bee allergy status; Z79.82 Long term (current) use of aspirin; Z79.899 Other long term (current) drug therapy
CPT/HCPCS: 01402; 36415; 73560-26-LT; 73560-LT; 80048; 80053; 85025; 85027; 87641; 90472; 90670; 90715; 94667; 94760; 94762; 97110-GP; 97116-GP; 97161-GP; 97166-GO; 97535-GO; A9270-GY; C1776; G0009; J0171; J0690; J0697; J1885; J2250; J2270; J2405; J2704; J2765; J3010; J3370; J3490; J7120

== ENCOUNTER 2017-04-13 13:02 | Emergency (ER) | payer MEDICARE, BC, OTHER ==
[2017-04-13 13:58] VITALS: BP 154/87
--- NOTE | 2017-04-13 13:58 | EDM.PDOC ---
ED HPI GENERAL MEDICAL PROBLEM - General Chief Complaint: Genitourinary Problem Stated Complaint: BLOOD IN URINE Time Seen by Provider: 04/13/17 13:23 Source of Information: Reports: Patient History Limitations: Reports: No Limitations - History of Present Illness INITIAL COMMENTS - FREE TEXT/NARRATIVE: The patient is a 66-year-old female with a chief complaint of dysuria. She states that she's had frequent urinary tract infectionsand has already been treated with a couple of courses of antibiotics this year for urine infections. She initially completed a course of nitrofurantoin. She then took a course of Bactrim and finished this med a couple of weeks ago. For the past several days she's had no onset of dysuria and frequency and then today she noticed some hematuria so decided to come in. No fever. No vomiting. No flank pain. She does have some very low back pain that started after a car ride 3 days ago that is dull and constant and located in the right lower back area. Lower Back Pain Score (Numeric/FACES): 5 - Related Data Allergies Allergy/AdvReac Type Severity Reaction Status Date / Time amlodipine [From Norvasc] Allergy Itching Verified 04/13/17 13:09 bee venom protein (honey bee) Allergy Edema Verified 04/13/17 13:09 amoxicillin AdvReac Stomach Verified 04/13/17 13:09 Upset cyclobenzaprine AdvReac Hallucinati Verified 04/13/17 13:09 [From Flexeril] ons erythromycin base AdvReac Stomach Verified 04/13/17 13:09 Upset Home Meds: Home Meds Aspirin/Acetaminophen/Caffeine [Migraine Relief Caplet] 2 tab PO Q6H PRN [History] Calcium Carbonate [Calcium] 1,200 mg PO DAILY 01/31/17 [History] Hydrochlorothiazide 12.5 mg PO DAILY 01/31/17 [History] Multivitamin [Daily Oliver] 1 tab PO DAILY 01/31/17 [History] Omeprazole Magnesium [Prilosec Otc] 20 mg PO DAILY 01/31/17 [History] Simvastatin [Zocor] 20 mg PO BEDTIME 01/31/17 [History] Cholecalciferol (Vitamin D3) [Vitamin D] 1 tab PO DAILY 02/03/17 [History] Cephalexin 250 mg PO QID #56 capsule 04/13/17 [Rx] Fish Oil/[place]-3 Fatty Acids [Fish Oil 1,000 MG] 1 cap PO BID 04/13/17 [History] Past Medical History HEENT History: Reports: Impaired Vision, Other (See Below) Other HEENT History: wears glasses Cardiovascular History: Reports: Heart Murmur, High Cholesterol, Hypertension, Other (See Below) Other Cardiovascular History: mitral valve regurgitation Respiratory History: Reports: Sleep Apnea Gastrointestinal History: Reports: GERD Genitourinary History: Reports: Other (See Below) Other Genitourinary History: breast hypertrophy, UTI, frequency SALES SOLUTIONS REPRESENTATIVE History: Reports: None Musculoskeletal History: Reports: Osteoarthritis, Osteoporosis, Other (See Below ) Other Musculoskeletal History: degenerative joint disease, degenerative disc disease, bilateral shoulder pain, upper back pain Neurological History: Reports: Migraines Psychiatric History: Reports: Depression Endocrine/Metabolic History: Reports: None, Obesity/BMI 30+ Hematologic History: Reports: None Immunologic History: Reports: None Oncologic (Cancer) History: Reports: None Dermatologic History: Reports: None - Past Surgical History GI Surgical History: Reports: Cholecystectomy, Colonoscopy, EGD Female Surgical History: Reports: Breast Biopsy Endocrine Surgical History: Reports: None Neurological Surgical History: Reports: None Musculoskeletal Surgical History: Reports: Other (See Below) Other Musculoskeletal Surgeries/Procedures:: right total knee, right foot fusion with hardware Oncologic Surgical History: Reports: None Social & Family History - Tobacco Use Smoking Status *Q: Never Smoker Second Hand Smoke Exposure: No - Caffeine Use Caffeine Use: Reports: None - Alcohol Use Days Per Week of Alcohol Use: 0 (1-2 per month) - Recreational Drug Use Recreational Drug Use: No ED ROS GENERAL - Review of Systems Review Of Systems: See Below Constitutional: Denies: Fever HEENT: Reports: No Symptoms Respiratory: Denies: Shortness of Breath, Cough Cardiovascular: Denies: Chest Pain Endocrine: Reports: No Symptoms GI/Abdominal: Denies: Abdominal Pain : Reports: Dysuria ED EXAM, RENAL/ - Physical Exam Exam: See Below Exam Limited By: No Limitations General Appearance: Alert, WD/WN, No Apparent Distress Eye Exam: Bilateral Eye: Normal Inspection Ears: Normal External Exam Nose: Normal Inspection Throat/Mouth: Normal Inspection, Normal Oropharynx, Normal Voice, No Airway Compromise Head: Atraumatic, Normocephalic Neck: Normal Inspection, Supple, Non-Tender, Full Range of Motion Respiratory/Chest: No Respiratory Distress, Lungs Clear, Normal Breath Sounds Cardiovascular: Normal Peripheral Pulses, Regular Rate, Rhythm GI/Abdominal: Soft, Non-Tender, No Distention. No: Rebound Back Exam: Normal Inspection, Paraspinal Tenderness (low lumbar). No: CVA Tenderness (L), CVA Tenderness (R) Extremities: Normal Inspection Neurological: Alert, Oriented, Normal Cognition Psychiatric: Normal Affect, Normal Mood Skin Exam: Warm, Dry, Intact, Normal Color, No Rash Course - Vital Signs Last Recorded V/S: Last Vital Signs Temp 36.6 C 04/13/17 13:09 Pulse 78 04/13/17 13:09 Resp 17 04/13/17 13:09 BP 154/87 H 04/13/17 13:09 Pulse Ox 96 04/13/17 13:09 - Orders/Labs/Meds Orders: Active Orders 24 hr Category Date Time Status CULTURE URINE [RM] Stat Lab 04/13/17 13:25 Received Labs: Laboratory Tests 04/13/17 Range/Units 13:25 Urine Color [place] H (Yellow) Urine Appearance Clear (Clear) Urine pH 5.0 (5.0-8.0) Ur Specific [place] 1.020 (1.005-1.030) Urine Protein 2+ H (Negative) Urine Glucose (UA) Trace H (Negative) Urine Ketones Trace H (Negative) Urine Occult Blood Negative (Negative) Urine Nitrite Positive H (Negative) Urine Bilirubin 1+ H (Negative) Urine Urobilinogen 4.0 H (0.2-1.0) Ur Leukocyte Esterase 3+ H (Negative) Urine RBC Not seen (0-5) /hpf Urine WBC 5-10 H (0-5) /hpf Ur Epithelial Cells 5-10 H (0-5) /hpf Urine Bacteria Rare (FEW) /hpf Urine Mucus Not seen (FEW) /hpf - Re-Assessments/Exams Free Text/Narrative Re-Assessment/Exam: 04/13/17 14:35 UA is nitrite and LCE positive. Will treat for cystitis with cephalexin as her latest urine culture grew e.coli which was susceptible to cephalosporins. Advised her to f/u with PCP re: frequent infections. Discussed return precautions. Departure - Departure Time of Disposition: 14:00 Disposition: Home, Self-Care 01 Clinical Impression: UTI, Urinary tract infectious disease - Discharge Information Prescriptions: Cephalexin 250 mg PO QID #56 capsule Instructions: Urinary Tract Infection, Adult Referrals: Bharat Pugh MD [Primary Care Provider] - Forms: ED Department Discharge Additional Instructions: 1. Take antibiotic as prescribed 2. Follow up with your primary care physician in 1-2 weeks 3. Return to the Emergency Department if you have worsening symptoms, fever, vomiting, worsening back pain, or any other concerning symptoms - My Orders Last 24 Hours: My Active Orders 04/13/17 13:25 CULTURE URINE [RM] Stat - Assessment/Plan Last 24 Hours: My Active Orders 04/13/17 13:25 CULTURE URINE [RM] Stat
== END 2017-04-13 14:05 | disposition home or self-care (01) ==
LOC: JD.ED 13:02
DX: N39.0 Urinary tract infection, site not specified (principal); E78.00 Pure hypercholesterolemia, unspecified; I10 Essential (primary) hypertension; K21.9 Gastro-esophageal reflux disease without esophagitis; E66.9 Obesity, unspecified; Z88.1 Allergy status to other antibiotic agents; Z88.8 Allergy status to other drugs, medicaments and biological substances; Z91.030 Bee allergy status; Z79.899 Other long term (current) drug therapy
CPT/HCPCS: 81001; 87086; 99283

== ENCOUNTER 2017-09-04 10:13 | Emergency (ER) | payer MEDICARE, BC, OTHER ==
--- NOTE | 2017-09-04 10:53 | EDM.PDOC ---
ED HPI GENERAL MEDICAL PROBLEM - General Chief Complaint: Head Injury Stated Complaint: HEAD INJURY Time Seen by Provider: 09/04/17 10:24 Source of Information: Reports: Patient, Family (Daughter) History Limitations: Reports: No Limitations - History of Present Illness INITIAL COMMENTS - FREE TEXT/NARRATIVE: The patient states that she tripped on an electric cord at home around 09:40 this morning, falling against the corner of a wall, striking the right side of her head. There was no loss of consciousness. The patient complains of a headache to the area. No prior head injury. The patient is otherwise uninjured. The patient states that her last tetanus vaccination was 2 or 3 years ago. The patient's PCP is Dr. Pugh. Right Head Pain Score (Numeric/FACES): 6 - Related Data Allergies Allergy/AdvReac Type Severity Reaction Status Date / Time amlodipine [From Norvasc] Allergy Itching Verified 09/04/17 10:26 bee venom protein (honey bee) Allergy Edema Verified 09/04/17 10:26 amoxicillin AdvReac Stomach Verified 09/04/17 10:26 Upset erythromycin base AdvReac Stomach Verified 09/04/17 10:26 Upset Home Meds: Home Meds Aspirin/Acetaminophen/Caffeine [Migraine Relief Caplet] 2 tab PO Q6H PRN [History] Calcium Carbonate [Calcium] 1,200 mg PO DAILY 01/31/17 [History] Hydrochlorothiazide 12.5 mg PO DAILY 01/31/17 [History] Multivitamin [Daily Oliver] 1 tab PO DAILY 01/31/17 [History] Omeprazole Magnesium [Prilosec Otc] 20 mg PO DAILY 01/31/17 [History] Simvastatin [Zocor] 20 mg PO BEDTIME 01/31/17 [History] Cholecalciferol (Vitamin D3) [Vitamin D] 1 tab PO DAILY 02/03/17 [History] Cephalexin 250 mg PO QID #56 capsule 04/13/17 [Rx] Fish Oil/[place]-3 Fatty Acids [Fish Oil 1,000 MG] 1 cap PO BID 04/13/17 [History] Past Medical History HEENT History: Reports: Impaired Vision Other HEENT History: wears glasses Cardiovascular History: Reports: High Cholesterol, Hypertension Respiratory History: Reports: Sleep Apnea Gastrointestinal History: Reports: GERD Musculoskeletal History: Reports: Osteoarthritis, Osteoporosis Psychiatric History: Reports: Depression Endocrine/Metabolic History: Reports: None, Obesity/BMI 30+ - Past Surgical History GI Surgical History: Reports: Cholecystectomy, Colonoscopy, EGD Female Surgical History: Reports: Breast Biopsy (right, benign) Musculoskeletal Surgical History: Reports: Knee Replacement (bilateral), Other ( See Below) (Right foot fusion) Social & Family History - Family History Family Medical History: Noncontributory - Tobacco Use Smoking Status *Q: Never Smoker Second Hand Smoke Exposure: No - Caffeine Use Caffeine Use: Reports: None - Alcohol Use Alcohol Use History: Yes Days Per Week of Alcohol Use: 0 (1-2 per month) Alcohol Use Frequency: Socially - Recreational Drug Use Recreational Drug Use: No - Living Situation & Occupation Living situation: Reports: , Alone ( in [place]) Occupation: Retired ED ROS GENERAL - Review of Systems Review Of Systems: ROS reveals no pertinent complaints other than HPI. ED EXAM, HEAD INJURY - Physical Exam Exam: See Below Exam Limited By: No Limitations General Appearance: Alert, WD/WN, No Apparent Distress Head: Normocephalic, Scalp Lacerations (10 cm boomerang-shaped laceration to the right scalp) Eyes: Bilateral Eye: EOMI, Normal Inspection Ears: Normal External Exam, Hearing Grossly Normal Nose: Normal Inspection, No Blood Throat/Mouth: Normal Inspection, Normal Lips, Normal Voice, No Airway Compromise Neck: Non-Tender, Full Range of Motion, Normal Alignment, Normal Inspection Respiratory: No Respiratory Distress, Lungs Clear, Normal Breath Sounds, No Accessory Muscle Use Cardiovascular: Normal Peripheral Pulses, Regular Rate, Rhythm, No Gallop, No JVD, No Murmur, No Rub GI/Abdominal Exam: Normal Bowel Sounds, Soft, Non-Tender, No Organomegaly, No Distention, No Abnormal Bruit, No Mass (Female) Exam: Deferred Rectal (Female) Exam: Deferred Back Exam: Full Range of Motion, Normal Inspection, NT Extremities: Normal Inspection, Normal Range of Motion, No Pedal Edema, Normal Capillary Refill Neurologic: software developer intern II-XII nml As Tested, No Motor/Sensory Deficits, Alert, Oriented x 3 Skin: Normal Color, Warm/Dry ED LACERATION/WOUND & CHARLINE PROC - Laceration/Wound Repair Right Head Lac/wound length in cm: 10 Appearance: Subcutaneous, Irregular, Clean Distal NVT: Neuro & Vascular Intact Anesthetic Type: Local Local Anesthesia - Lidocaine (Xylocaine): 1% with EPI (50:50 admixture) Local Anesthesia - Bupivicaine (Marcaine): 0.5% Plain (50:50 admixture) Local Anesthetic Volume: Other (10 ml) Skin Prep: Saline Exploration/Debridement/Repair: Wound Explored, Explored to Base, No Foreign Material Found, Wound Margins Revised Closed with: [place] # of Sutures: 15 Sterile Dressing Applied: Nurse Tetanus Status Addressed: Yes Complications: No Course - Vital Signs Last Recorded V/S: Last Vital Signs Temp 36.1 C 09/04/17 10:21 Pulse 82 09/04/17 10:21 Resp 18 09/04/17 10:21 BP 164/87 H 09/04/17 10:21 Pulse Ox 95 09/04/17 10:21 - Orders/Labs/Meds Meds: Medications Discontinued Medications Generic Name Dose Route Start Last Admin Trade Name Freq PRN Reason Stop Dose Admin Bupivacaine HCl 10 ml 09/04/17 11:04 09/04/17 11:15 Sensorcaine-Mpf 0.5% INJECT 09/04/17 11:05 10 ml ONETIME ONE Administration Lidocaine/Epinephrine 5 ml 09/04/17 11:04 09/04/17 11:14 Xylocaine-Mpf 1.5% W/Epinephrine 1:200,000 INJECT 09/04/17 11:05 Not Given ONETIME ONE Lidocaine/Epinephrine Confirm 09/04/17 11:16 09/04/17 11:15 Xylocaine 1% With Epinephrine 1:100,000 Administered 09/04/17 11:17 Not Given Dose 20 ml .ROUTE .STK-MED ONE Lidocaine/Epinephrine 20 ml 09/04/17 11:14 09/04/17 11:15 Xylocaine 1% With Epinephrine 1:100,000 INJECT 09/04/17 11:15 20 ml ONETIME ONE Administration - Re-Assessments/Exams Free Text/Narrative Re-Assessment/Exam: 09/04/17 11:24 The patient's right scalp laceration was anesthetized with 10 ml of a 50-50 admixture of lidocaine 1% with epinephrine and bupivacaine 0.5% without epinephrine per PA student Bessie Mulligan. The wound was then closed using 15 sanford, also per PA lizeth Mulligan. The patient tolerated the procedure well. Departure - Departure Time of Disposition: 11:26 Disposition: Home, Self-Care 01 Condition: Good Clinical Impression: Fall at home, Scalp laceration - Discharge Information Referrals: Bharat Pugh MD [Primary Care Provider] - Forms: ED Department Discharge Additional Instructions: You were seen in the emergency room after falling at home, cutting the right side of your scalp on the corner of a wall. You received a total of 15 sanford to the wound. Keep the wound clean with ordinary shampoo and water. Antibiotic ointment is not necessary, and you should not put any product in your hair. You should expect that the wound will weep bloody fluid for the next two or three days. Keep this in mind when choosing bedsheets. Take [id number] Tylenol or ibuprofen as needed for discomfort. The sanford should be ready for removal by , 09/11/2017. This can be done at a walk-in clinic, by a nurse at your doctor's office, or at an ER. If any other problems, please do not hesitate to return to the ER.
[2017-09-04] MEDS ORDERED: Lidocaine 1.5% with EPINEPHrine 1:200,000 5 ML Amp INJECT ONE (11:04)
[2017-09-04] MEDS ORDERED: Bupivacaine 0.5% 10 ML SDV INJECT ONE (11:04)
[2017-09-04] MEDS ORDERED: Lidocaine 1% with EPINEPHrine 1:100,000 20 ML MDV INJECT ONE (11:14)
[2017-09-04] MEDS ORDERED: Lidocaine 1% with EPINEPHrine 1:100,000 20 ML MDV ONE (11:16)
[2017-09-04 12:10] VITALS: BP 140/73
== END 2017-09-04 12:00 | disposition home or self-care (01) ==
LOC: JD.ED 10:13
DX: S01.01XA Laceration without foreign body of scalp, initial encounter (principal); E78.00 Pure hypercholesterolemia, unspecified; I10 Essential (primary) hypertension; K21.9 Gastro-esophageal reflux disease without esophagitis; E66.9 Obesity, unspecified; W01.198A Fall on same level from slipping, tripping and stumbling with subsequent striking against other object, initial encounter; Y92.009 Unspecified place in unspecified non-institutional (private) residence as the place of occurrence of the external cause; Z88.1 Allergy status to other antibiotic agents; Z91.030 Bee allergy status; Z79.899 Other long term (current) drug therapy
CPT/HCPCS: 12004; 99282-25; 99283-25

== ENCOUNTER 2017-09-05 17:11 | Emergency (ER) | payer MEDICARE, BC ==
[2017-09-05 17:20] VITALS: BP 141/72
--- NOTE | 2017-09-05 17:23 | EDM.PDOC ---
<Bessie Mulligan - Last Filed: 09/05/17 18:49> ED HPI GENERAL MEDICAL PROBLEM - General Chief Complaint: General Stated Complaint: DRESSING IS STICKING Time Seen by Provider: 09/05/17 17:23 - Related Data Allergies Allergy/AdvReac Type Severity Reaction Status Date / Time amlodipine [From [facility]] Allergy Itching Verified 09/05/17 17:20 bee venom protein (honey bee) Allergy Edema Verified 09/05/17 17:20 amoxicillin AdvReac Stomach Verified 09/05/17 17:20 Upset erythromycin base AdvReac Stomach Verified 09/05/17 17:20 Upset Home Meds: Home Meds Aspirin/Acetaminophen/Caffeine [Migraine Relief Caplet] 2 tab PO Q6H PRN [History] Calcium Carbonate [Calcium] 1,200 mg PO DAILY 01/31/17 [History] Hydrochlorothiazide 12.5 mg PO DAILY 01/31/17 [History] Multivitamin [Daily Oliver] 1 tab PO DAILY 01/31/17 [History] Omeprazole Magnesium [Prilosec Otc] 20 mg PO DAILY 01/31/17 [History] Simvastatin [Zocor] 20 mg PO BEDTIME 01/31/17 [History] Cholecalciferol (Vitamin D3) [Vitamin D] 1 tab PO DAILY 02/03/17 [History] Fish Oil/[place]-3 Fatty Acids [Fish Oil 1,000 MG] 1 cap PO BID 04/13/17 [History] Cranberry 500 mg PO DAILY 09/05/17 [History] ED GENERAL MEDICAL PROCEDURES - Laceration/Wound Repair Right Head Lac/wound length in cm: 10 Anesthetic Type: Local Local Anesthesia - Lidocaine (Xylocaine): 1% Plain Local Anesthetic Volume: 3cc Skin Prep: Chlorhexidine (Hibiciens), Saline Closed with: Sutures Suture Size: 4-0 Suture Type: Interrupted, Simple, Other (vicryl) Sterile Dressing Applied: Nurse Progress/Comments: Laceration repaired with sanford were in place from yesterday. The wound was continuing to bleed so 3 sutures were inserted approximately in the middle of the laceration. Course - Vital Signs Last Recorded V/S: Last Vital Signs Temp 97.9 F 09/05/17 17:18 Pulse 75 09/05/17 17:18 Resp 18 09/05/17 17:18 BP 141/72 H 09/05/17 17:18 Pulse Ox 94 L 09/05/17 17:18 - Orders/Labs/Meds Orders: Active Orders 24 hr Category Date Time Status UA W/MICROSCOPIC [URIN] Stat Lab 09/05/17 18:55 Ordered Labs: Laboratory Tests 09/05/17 Range/Units 18:55 Urine Color Light yellow (Yellow) Urine Appearance Clear (Clear) Urine pH 6.5 (5.0-8.0) Ur Specific Faison 1.010 (1.005-1.030) Urine Protein Negative (Negative) Urine Glucose (UA) Negative (Negative) Urine Ketones Negative (Negative) Urine Occult Blood 1+ H (Negative) Urine Nitrite Negative (Negative) Urine Bilirubin Negative (Negative) Urine Urobilinogen 0.2 (0.2-1.0) Ur Leukocyte Esterase Negative (Negative) Urine RBC 0-5 (0-5) /hpf Urine WBC 0-5 (0-5) /hpf Ur Epithelial Cells 0-5 (0-5) /hpf Urine Bacteria Few (FEW) /hpf Urine Mucus Not seen (FEW) /hpf Meds: Medications Discontinued Medications Generic Name Dose Route Start Last Admin Trade Name Rasheedq PRN Reason Stop Dose Admin Lidocaine HCl Confirm 09/05/17 18:31 Xylocaine 1% Administered 09/05/17 18:32 Dose 50 ml .ROUTE .STK-MED ONE Lidocaine/Epinephrine 20 ml 09/05/17 18:30 Xylocaine 1% With Epinephrine 1:100,000 INJECT 09/05/17 18:31 ONETIME ONE Lidocaine/Tetracaine 1 ml 09/05/17 17:52 09/05/17 17:56 Let Soln TOP 09/05/17 17:53 1 ml ONETIME ONE Administration Departure - Departure Disposition: Home, Self-Care 01 Clinical Impression: Bleeding from wound Scalp laceration Qualifiers: Encounter type: subsequent encounter Qualified Code(s): S01.01XD - Laceration without foreign body of scalp, subsequent encounter Hematuria Qualifiers: Hematuria type: gross Qualified Code(s): R31.0 - Gross hematuria - Discharge Information Instructions: Hematuria, Adult Referrals: Bharat Pugh MD [Primary Care Provider] - Forms: ED Department Discharge Additional Instructions: Leave bandage on your laceration tonight, you may remove this tomorrow and shower. Do not rub or massage the laceration, you may let the water run over it but not directly on it. Monitor for any return of bleeding. Certainly if bleeding should return you should come back into the emergency room. Your urinalysis demonstrated some blood in the urine but no sign of infection. I recommend that you increase your overall fluid intake. Follow up with your primary provider to repeat this in a few weeks or follow up sooner if you have any pain. - My Orders Last 24 Hours: My Active Orders 09/05/17 18:55 UA W/MICROSCOPIC [URIN] Stat - Assessment/Plan Last 24 Hours: My Active Orders 09/05/17 18:55 UA W/MICROSCOPIC [URIN] Stat <Berenice Jordan L - Last Filed: 09/05/17 19:21> ED HPI GENERAL MEDICAL PROBLEM - General Source of Information: Reports: Patient - History of Present Illness INITIAL COMMENTS - FREE TEXT/NARRATIVE: Patient is here for evaluation of persistent bleeding to a scalp laceration. This laceration was stapled here in the emergency room yesterday after patient fell and hit her head on the corner of the wall. 15 sanford were placed. Patient states that this has continued to bleed since that time. She is not on any blood thinners. She has not had difficulty with significant bleeding or bruising previously. Patient also questioning possible UTI, she states that she has had some hematuria. She denies any pelvic or flank pain. She denies any dysuria or frequency. Past Medical History HEENT History: Reports: Impaired Vision Other HEENT History: wears glasses Cardiovascular History: Reports: High Cholesterol, Hypertension Other Cardiovascular History: mitral valve regurgitation Respiratory History: Reports: Sleep Apnea Gastrointestinal History: Reports: GERD Genitourinary History: Reports: UTI, Recurrent, Other (See Below) Other Genitourinary History: breast hypertrophy, frequency [employer] History: Reports: None Musculoskeletal History: Reports: Osteoarthritis, Osteoporosis Other Musculoskeletal History: degenerative joint disease, degenerative disc disease, bilateral shoulder pain, upper back pain Neurological History: Reports: Concussion, Migraines Psychiatric History: Reports: Depression Endocrine/Metabolic History: Reports: None, Obesity/BMI 30+ Hematologic History: Reports: None Immunologic History: Reports: None Oncologic (Cancer) History: Reports: None Dermatologic History: Reports: None - Past Surgical History GI Surgical History: Reports: Cholecystectomy, Colonoscopy, EGD Female Surgical History: Reports: Breast Biopsy Neurological Surgical History: Reports: None Musculoskeletal Surgical History: Reports: Knee Replacement, Other (See Below) Oncologic Surgical History: Reports: None Social & Family History - Family History Family Medical History: Noncontributory - Tobacco Use Smoking Status *Q: Never Smoker Second Hand Smoke Exposure: No - Caffeine Use Caffeine Use: Reports: None - Alcohol Use Days Per Week of Alcohol Use: 0 (1-2 per month) - Recreational Drug Use Recreational Drug Use: No - Living Situation & Occupation Living situation: Reports: , Alone ( in [place]) Occupation: Retired ED ROS GENERAL - Review of Systems Review Of Systems: See Below Constitutional: Reports: No Symptoms Cardiovascular: Reports: No Symptoms Endocrine: Reports: No Symptoms Skin: Reports: Other (Laceration with persistent bleeding to right side of scalp.) Neurological: Reports: No Symptoms Psychiatric: Reports: No Symptoms Hematologic/Lymphatic: Denies: Easy Bleeding, Easy Bruising ED EXAM, GENERAL - Physical Exam Exam: See Below Exam Limited By: No Limitations General Appearance: Alert, WD/WN, No Apparent Distress Neurological: Alert, Oriented, No Motor/Sensory Deficits Psychiatric: Normal Affect, Normal Mood Skin Exam: Warm, Dry, Other (Large laceration to right scalp with sanford in place. Localized area of pulsatile bleeding due to having to sanford approximately 3 cm from the anterior aspect of the laceration.) Course - Orders/Labs/Meds Orders: Active Orders 24 hr Category Date Time Status UA W/MICROSCOPIC [URIN] Stat Lab 09/05/17 18:55 Ordered Labs: Laboratory Tests 09/05/17 Range/Units 18:55 Urine Color Light yellow (Yellow) Urine Appearance Clear (Clear) Urine pH 6.5 (5.0-8.0) Ur Specific Faison 1.010 (1.005-1.030) Urine Protein Negative (Negative) Urine Glucose (UA) Negative (Negative) Urine Ketones Negative (Negative) Urine Occult Blood 1+ H (Negative) Urine Nitrite Negative (Negative) Urine Bilirubin Negative (Negative) Urine Urobilinogen 0.2 (0.2-1.0) Ur Leukocyte Esterase Negative (Negative) Urine RBC 0-5 (0-5) /hpf Urine WBC 0-5 (0-5) /hpf Ur Epithelial Cells 0-5 (0-5) /hpf Urine Bacteria Few (FEW) /hpf Urine Mucus Not seen (FEW) /hpf Meds: Medications Discontinued Medications Generic Name Dose Route Start Last Admin Trade Name Ebenezer PRN Reason Stop Dose Admin Lidocaine HCl Confirm 09/05/17 18:31 Xylocaine 1% Administered 09/05/17 18:32 Dose 50 ml .ROUTE .STK-MED ONE Lidocaine/Epinephrine 20 ml 09/05/17 18:30 Xylocaine 1% With Epinephrine 1:100,000 INJECT 09/05/17 18:31 ONETIME ONE Lidocaine/Tetracaine 1 ml 09/05/17 17:52 09/05/17 17:56 Let Soln TOP 09/05/17 17:53 1 ml ONETIME ONE Administration - Re-Assessments/Exams Free Text/Narrative Re-Assessment/Exam: Pulsatile bleeding to specific area of her laceration. Quick clot was initially tried, the patient soaked through that gauze quite quickly. Area was anesthetized and 3 stitches were placed by LEONA Mulligan where the bleeding persisted. Patient was monitored and bleeding did not return to this area. Dressing was applied, patient will leave this on until tomorrow. She'll follow- up with her PCP or return to emergency room if bleeding should resume. Urinalysis demonstrates 1+ hematuria but no sign of infection. She has no pelvic or flank pain. I recommend the patient increase her overall fluid intake and have this rechecked by her PCP in a few weeks. 09/05/17 18:02 09/05/17 19:14 09/05/17 19:21 Departure - Departure Time of Disposition: 19:20 Condition: Good - My Orders Last 24 Hours: My Active Orders 09/05/17 18:55 UA W/MICROSCOPIC [URIN] Stat - Assessment/Plan Last 24 Hours: My Active Orders 09/05/17 18:55 UA W/MICROSCOPIC [URIN] Stat
[2017-09-05] MEDS ORDERED: Lidocaine/EPINEPHrine/Tetracaine Soln 1 ML TOP ONE (17:52)
[2017-09-05] MEDS ORDERED: Lidocaine 1% 50 ML MDV INJECT ONE (18:20)
[2017-09-05] MEDS ORDERED: Lidocaine 1% with EPINEPHrine 1:100,000 20 ML MDV INJECT ONE (18:30)
[2017-09-05] MEDS ORDERED: Lidocaine 1% 50 ML MDV ONE (18:31)
== END 2017-09-05 19:20 | disposition home or self-care (01) ==
LOC: JD.ED 17:11
DX: S01.01XA Laceration without foreign body of scalp, initial encounter (principal); R31.0 Gross hematuria; Z88.1 Allergy status to other antibiotic agents; Z88.8 Allergy status to other drugs, medicaments and biological substances; Z79.899 Other long term (current) drug therapy; W22.01XA Walked into wall, initial encounter
CPT/HCPCS: 12004; 81001; 99283; A9270; 12001